=== PATIENT | male | born 1935 | race African-American/Black ===

== ENCOUNTER 2016-12-17 12:37 | Inpatient (IN) | payer MEDICARE ==
[~2016-12-17] VITALS: Ht 165.1 cm; Wt 86.2 kg
[~2016-12-17 12:37] MED LIST: AMLO5TAB4 PO; ASPI-867 PO; DUTA0.5C2 PO; FISH PO; FURO-151 PO; POTA10TA15 PO; TAMS-11 PO
[2016-12-17 12:59] VITALS: BP 120/62
[2016-12-17 13:00] VITALS: BP 120/62
[2016-12-17] MEDS ORDERED: ACETAMINOPHEN 325MG TABLET PO PRN ×2 (13:15→13:37)
[2016-12-17] MEDS ORDERED: DIPHENHYDRAMINE 25MG CAPSULE PO PRN (13:15)
[2016-12-17] MEDS ORDERED: MAGNESIUM/ALUMINUM HYDROXIDE/SIMETHICONE 30ML UDC PO PRN (13:15)
[2016-12-17] MEDS ORDERED: DEXTROSE 50% WATER 50ML SYRINGE IV PRN ×2 (13:15→13:45)
[2016-12-17] MEDS ORDERED: MORPHINE SULFATE 15MG TABLET SR PO PRN (13:15)
[2016-12-17] MEDS ORDERED: NITROGLYCERIN OINT 1GM/INCH UDPKT TD SCH (14:00)
[2016-12-17] MEDS: SODIUM CHLORIDE 0.9% INJ 3ML FLUSH IVF SCH ×2 (14:25→21:25)
[2016-12-17] MEDS: HYDRALAZINE HCL 100MG TABLET PO SCH ×2 (14:25→21:25)
[2016-12-17] MEDS: ONDANSETRON HCL 4MG TABLET PO PRN (14:29)
[2016-12-17] MEDS ORDERED: HYDROMORPHONE HCL 2MG TABLET PO PRN (15:00)
[2016-12-17 16:04] VITALS: BP 125/76
[2016-12-17] MEDS: BLOOD SUGAR DIAGNOSTIC STRIP TEST SCH ×2 (16:34→21:11)
[2016-12-17 17:44] LABS: BASOPHILS % 0.7 % (0.0-2.0); EOSINOPHILS % 2.2 % (0.0-5.0); HEMATOCRIT. 28.4 % (42.0-52.0); HEMOGLOBIN. 9.5 g/dL (14.0-18.0); LYMPHOCYTES % 8.7 % (20.0-50.0); MEAN CORPUSCULAR HEMOGLOBIN 31.8 pg (28.0-32.0); MEAN CORPUSCULAR HGB CONC 33.4 g/dL (31.0-37.0); MEAN CORPUSCULAR VOLUME 95.2 fL (80.0-94.0); MONOCYTES % 9.7 % (2.0-8.0); NEUTROPHILS % 78.7 % (40.0-76.0); PLATELET 182 x1000/uL (130-400); RED BLOOD CELL COUNT 2.99 mill/uL (4.7-6.1); RED CELL DISTRIBUTION WIDTH 13.5 % (11.6-14.6); WHITE BLOOD COUNT 10.7 x1000/uL (4.5-11.0)
[2016-12-17 17:49] LABS: CHLORIDE 96 mEq/L (98-107); INDEX HEMOLYSI 1 (1-3); INDEX ICTERIC 1 (1-4); INDEX LIPEMIC 1 (1-3)
[2016-12-17 17:57] LABS: ALANINE AMINOTRANSFERASE 26 IU/L (13-61); ALBUMIN 2.2 g/dL (3.4-5.0); ANION GAP 11; CALCIUM 8.5 mg/dL (8.5-10.1); CARBON DIOXIDE 31 mEq/L (21-32); PREALBUMIN 19.1 mg/dL (20.0-40.0); UREA NITROGEN BLOOD 53 mg/dL (7-21); eGFR 24 mL/min (>60)
[2016-12-17] MEDS: INSULIN LISPRO 100 UNITS/ML SUBCUT SCH ×2 (18:30→21:00)
[2016-12-17 20:00] VITALS: BP 117/60
[2016-12-17] MEDS: OXYBUTYNIN CHLORIDE 5MG TABLET PO SCH (20:45)
[2016-12-17] MEDS: CARVEDILOL 3.125 MG TABLET PO SCH (20:46)
[2016-12-17] MEDS ORDERED: FUROSEMIDE 40MG TABLET PO SCH (21:00)
[2016-12-17] MEDS ORDERED: LISINOPRIL 20MG TABLET PO SCH (21:00)
[2016-12-18] MEDS: HYDRALAZINE HCL 100MG TABLET PO SCH ×3 (05:22→21:36)
[2016-12-18] MEDS: SODIUM CHLORIDE 0.9% INJ 3ML FLUSH IVF SCH ×3 (05:22→21:39)
[2016-12-18] MEDS: BLOOD SUGAR DIAGNOSTIC STRIP TEST SCH ×4 (06:05→21:39)
[2016-12-18 06:34] LABS: BASOPHILS % 0.9 % (0.0-2.0); EOSINOPHILS % 3.4 % (0.0-5.0); HEMATOCRIT. 26.4 % (42.0-52.0); HEMOGLOBIN. 8.8 g/dL (14.0-18.0); LYMPHOCYTES % 13.9 % (20.0-50.0); MEAN CORPUSCULAR HEMOGLOBIN 31.9 pg (28.0-32.0); MEAN CORPUSCULAR HGB CONC 33.4 g/dL (31.0-37.0); MEAN CORPUSCULAR VOLUME 95.4 fL (80.0-94.0); MONOCYTES % 11.5 % (2.0-8.0); NEUTROPHILS % 70.3 % (40.0-76.0); PLATELET 175 x1000/uL (130-400); RED BLOOD CELL COUNT 2.77 mill/uL (4.7-6.1); WHITE BLOOD COUNT 9.2 x1000/uL (4.5-11.0)
[2016-12-18] MEDS: INSULIN LISPRO 100 UNITS/ML SUBCUT SCH ×4 (07:14→21:00)
[2016-12-18 07:34] LABS: CALCIUM 8.5 mg/dL (8.5-10.1); MAGNESIUM 2.3 mg/dL (1.8-2.4)
[2016-12-18 08:00] VITALS: BP 137/84
[2016-12-18] MEDS: TAMSULOSIN HCL 0.4MG SR CAPSULE PO SCH (09:47)
[2016-12-18] MEDS: OXYBUTYNIN CHLORIDE 5MG TABLET PO SCH ×2 (09:48→21:35)
[2016-12-18] MEDS: CARVEDILOL 3.125 MG TABLET PO SCH ×2 (09:48→21:37)
[2016-12-18] MEDS: ASPIRIN 81MG TABLET PO SCH (09:48)
[2016-12-18] MEDS: AMLODIPINE 5MG TABLET PO SCH (09:48)
[2016-12-18] MEDS: ENOXAPARIN 30MG/0.3ML SYR SUBCUT SCH (09:49)
[2016-12-18] MEDS: INSULIN DETEMIR UD 100 UNITS/ML SYR SUBCUT SCH (09:56)
[2016-12-18] MEDS ORDERED: LACTULOSE 20G/30ML UDC PO NR (13:00)
[2016-12-18] MEDS: ONDANSETRON HCL 4MG TABLET PO PRN (13:46)
[2016-12-18] MEDS: DOCUSATE SODIUM 100MG CAPSULE PO SCH (16:35)
[2016-12-18 17:19] LABS: CLARITY URINE CLEAR (CLEAR); COLOR URINE YELLOW (YELLOW); GLUCOSE URINE TRACE (NEGATIVE); KETONES URINE NEGATIVE (NEGATIVE); LEUKOCYTE ESTERASE URINE 2+ (NEGATIVE); NITRITE URINE NEGATIVE (NEGATIVE); OCCULT BLOOD URINE NEGATIVE (NEGATIVE); PH URINE 5.5 (4.5-8.0); PROTEIN URINE 3+ (NEGATIVE); SPECIFIC GRAVITY URINE 1.016 (1.005-1.030); UROBILINOGEN URINE 0.2 E.U./dL (0.2-1.0)
[2016-12-18 17:20] LABS: PHOSPHORUS 4.4 mg/dL (2.5-4.9)
[2016-12-18 17:47] LABS: BACTERIA URINE 1+; RBC URINE 0-2 /hpf (0-2); SQUAMOUS EPITHELIAL CELL URINE FEW /lpf (RARE/1+)
[2016-12-18 20:00] VITALS: BP 117/65
[2016-12-18] MEDS: IPRATROPIUM/ALBUTEROL 0.5-3(2.5)MG/3ML NEB HHN PRN (21:04)
[2016-12-19] MEDS: SODIUM CHLORIDE 0.9% INJ 3ML FLUSH IVF SCH ×3 (05:37→23:03)
[2016-12-19] MEDS: HYDRALAZINE HCL 100MG TABLET PO SCH ×3 (05:37→23:03)
[2016-12-19] MEDS: BLOOD SUGAR DIAGNOSTIC STRIP TEST SCH ×4 (05:41→21:00)
[2016-12-19] MEDS: INSULIN LISPRO 100 UNITS/ML SUBCUT SCH ×4 (05:42→23:01)
[2016-12-19 07:53] LABS: BASOPHILS % 0.6 % (0.0-2.0); EOSINOPHILS % 3.5 % (0.0-5.0); HEMATOCRIT. 26.5 % (42.0-52.0); LYMPHOCYTES % 14.7 % (20.0-50.0); MEAN CORPUSCULAR HEMOGLOBIN 32.7 pg (28.0-32.0); MEAN CORPUSCULAR HGB CONC 33.9 g/dL (31.0-37.0); MEAN CORPUSCULAR VOLUME 96.5 fL (80.0-94.0); MONOCYTES % 11.1 % (2.0-8.0); NEUTROPHILS % 70.1 % (40.0-76.0); PLATELET 182 x1000/uL (130-400); RED BLOOD CELL COUNT 2.75 mill/uL (4.7-6.1); RED CELL DISTRIBUTION WIDTH 13.2 % (11.6-14.6); WHITE BLOOD COUNT 8.1 x1000/uL (4.5-11.0)
[2016-12-19 08:00] VITALS: BP 136/65
[2016-12-19 08:33] LABS: CALCIUM 8.7 mg/dL (8.5-10.1); MAGNESIUM 2.5 mg/dL (1.8-2.4); PHOSPHORUS 3.9 mg/dL (2.5-4.9)
[2016-12-19 08:36] LABS: THYROID STIMULATING HORMONE 1.8 uIU/mL (0.36-3.74)
[2016-12-19] MEDS: ASPIRIN 81MG TABLET PO SCH (08:49)
[2016-12-19] MEDS: DOCUSATE SODIUM 100MG CAPSULE PO SCH ×2 (08:49→16:37)
[2016-12-19 08:50] LABS: PROSTRATE SPECIFIC AG TOTAL 0.23 ng/mL (0.0-4.0)
[2016-12-19] MEDS: FUROSEMIDE 40MG TABLET PO SCH (08:50)
[2016-12-19] MEDS: TAMSULOSIN HCL 0.4MG SR CAPSULE PO SCH (08:50)
[2016-12-19] MEDS: AMLODIPINE 5MG TABLET PO SCH (08:52)
[2016-12-19] MEDS: CARVEDILOL 3.125 MG TABLET PO SCH ×2 (08:52→23:03)
[2016-12-19] MEDS: OXYBUTYNIN CHLORIDE 5MG TABLET PO SCH ×2 (08:52→23:03)
[2016-12-19] MEDS: ENOXAPARIN 30MG/0.3ML SYR SUBCUT SCH (08:53)
[2016-12-19] MEDS ORDERED: NITROGLYCERIN 0.4MG TABLET SL SL SCH (09:00)
[2016-12-19 10:02] LABS: FOLIC ACID (FOLATE) SERUM 16.5 ng/mL (>5.38)
[2016-12-19] MEDS: LACTULOSE 20G/30ML UDC PO SCH ×3 (11:43→16:37)
[2016-12-19] MEDS: INSULIN DETEMIR UD 100 UNITS/ML SYR SUBCUT SCH (11:45)
[2016-12-19 16:19] LABS: CREATININE URINE RANDOM 55.4 mg/dL
[2016-12-19] MEDS: ONDANSETRON HCL 4MG TABLET PO PRN (19:27)
[2016-12-19 20:00] VITALS: BP 131/65
[2016-12-19] MEDS ORDERED: MAGNESIUM/ALUMINUM HYDROXIDE/SIMETHICONE 30ML UDC PO PRN (22:15)
[2016-12-19] MEDS ORDERED: BISACODYL 10MG SUPP PR NR (22:30)
[2016-12-19] MEDS ORDERED: ONDANSETRON HCL 4MG/2ML VIAL IV PRN (22:30)
[2016-12-19] MEDS ORDERED: NA PHOS,M-B/NA PHOS,DI-BA ENEMA 118ML PR NR (22:30)
[2016-12-19] MEDS: POLYETHYLENE GLYCOL 3350 (17GM) 1 DOSE PACK PO SCH (23:02)
[2016-12-20] MEDS: METOCLOPRAMIDE HCL 10MG/2ML VIAL IV SCH ×5 (01:00→23:30)
[2016-12-20] MEDS: INSULIN LISPRO 100 UNITS/ML SUBCUT SCH ×5 (02:52→20:47)
[2016-12-20] MEDS: HYDRALAZINE HCL 100MG TABLET PO SCH ×3 (06:11→21:00)
[2016-12-20] MEDS: SODIUM CHLORIDE 0.9% INJ 3ML FLUSH IVF SCH ×3 (06:12→21:01)
[2016-12-20] MEDS: BLOOD SUGAR DIAGNOSTIC STRIP TEST SCH ×4 (06:30→20:48)
[2016-12-20] MEDS ORDERED: SODIUM CHLORIDE 0.9% 1,000 ML IV SCH (06:45)
[2016-12-20] MEDS ORDERED: PANTOPRAZOLE 40MG DR TABLET PO SCH (07:00)
[2016-12-20 08:00] VITALS: BP 148/82
[2016-12-20] MEDS: PANTOPRAZOLE SODIUM 40 MG/VIAL IV SCH (08:44)
[2016-12-20] MEDS: ASPIRIN 81MG TABLET PO SCH (08:45)
[2016-12-20] MEDS: CARVEDILOL 3.125 MG TABLET PO SCH ×2 (08:45→20:48)
[2016-12-20] MEDS: OXYBUTYNIN CHLORIDE 5MG TABLET PO SCH ×2 (08:45→20:47)
[2016-12-20] MEDS ORDERED: NA PHOS,M-B/NA PHOS,DI-BA ENEMA 118ML PR ONE (08:45)
[2016-12-20] MEDS: FUROSEMIDE 40MG TABLET PO SCH (08:45)
[2016-12-20] MEDS: TAMSULOSIN HCL 0.4MG SR CAPSULE PO SCH (08:45)
[2016-12-20] MEDS: DOCUSATE SODIUM 250MG CAPSULE PO SCH ×2 (08:46→17:27)
[2016-12-20] MEDS: AMLODIPINE 5MG TABLET PO SCH (08:46)
[2016-12-20] MEDS: MUPIROCIN 2% OINT 22GM TOP SCH ×2 (08:46→17:27)
[2016-12-20] MEDS: ENOXAPARIN 30MG/0.3ML SYR SUBCUT SCH (08:46)
[2016-12-20] MEDS ORDERED: LACTULOSE 20G/30ML UDC PO PRN (09:00)
[2016-12-20 09:39] LABS: HEMOGLOBIN. 8.9 g/dL (14.0-18.0); MEAN CORPUSCULAR HEMOGLOBIN 32.8 pg (28.0-32.0); MEAN CORPUSCULAR VOLUME 96.4 fL (80.0-94.0); PLATELET 211 x1000/uL (130-400); RED CELL DISTRIBUTION WIDTH 13.3 % (11.6-14.6); WHITE BLOOD COUNT 9.1 x1000/uL (4.5-11.0)
[2016-12-20] MEDS: INSULIN DETEMIR UD 100 UNITS/ML SYR SUBCUT SCH (10:00)
[2016-12-20 10:35] LABS: ALANINE AMINOTRANSFERASE 37 IU/L (13-61); ALBUMIN 2.3 g/dL (3.4-5.0); AMYLASE 41 IU/L (25-115); ANION GAP 13; CALCIUM 8.3 mg/dL (8.5-10.1); CARBON DIOXIDE 27 mEq/L (21-32); CHLORIDE 95 mEq/L (98-107); INDEX HEMOLYSI 1 (1-3); INDEX ICTERIC 1 (1-4); INDEX LIPEMIC 1 (1-3); LIPASE 184 IU/L (73-393); UREA NITROGEN BLOOD 48 mg/dL (7-21); eGFR 29 mL/min (>60)
[2016-12-20 13:03] LABS: PLATELET ESTIMATE NORMAL
[2016-12-20] MEDS: DEXT 5%/0.9% NACL 1,000 ML IV SCH (14:27)
[2016-12-20] MEDS ORDERED: HYDROMORPHONE HCL 2MG TABLET PO PRN (15:00)
[2016-12-20 20:43] VITALS: BP 122/64
[2016-12-20] MEDS: POLYETHYLENE GLYCOL 3350 (17GM) 1 DOSE PACK PO SCH (20:47)
[2016-12-20] MEDS ORDERED: NA PHOS,M-B/NA PHOS,DI-BA ENEMA 118ML PR NR (21:45)
[2016-12-20] MEDS: LACTULOSE 20G/30ML UDC PO SCH (23:29)
[2016-12-21] MEDS: IPRATROPIUM/ALBUTEROL 0.5-3(2.5)MG/3ML NEB HHN PRN (00:07)
[2016-12-21] MEDS: LACTULOSE 20G/30ML UDC PO SCH ×2 (03:24→08:00)
[2016-12-21] MEDS: METOCLOPRAMIDE HCL 10MG/2ML VIAL IV SCH ×3 (05:29→17:20)
[2016-12-21] MEDS: HYDRALAZINE HCL 100MG TABLET PO SCH ×3 (05:29→22:54)
[2016-12-21] MEDS: SODIUM CHLORIDE 0.9% INJ 3ML FLUSH IVF SCH ×3 (05:29→22:53)
[2016-12-21] MEDS: BLOOD SUGAR DIAGNOSTIC STRIP TEST SCH ×4 (06:22→21:47)
[2016-12-21] MEDS: INSULIN LISPRO 100 UNITS/ML SUBCUT SCH ×4 (06:54→17:30)
[2016-12-21 07:09] LABS: EOSINOPHILS % 2.8 % (0.0-5.0); HEMATOCRIT. 25.8 % (42.0-52.0); HEMOGLOBIN. 8.7 g/dL (14.0-18.0); LYMPHOCYTES % 14.5 % (20.0-50.0); MEAN CORPUSCULAR HEMOGLOBIN 32.6 pg (28.0-32.0); MEAN CORPUSCULAR HGB CONC 33.8 g/dL (31.0-37.0); MEAN CORPUSCULAR VOLUME 96.6 fL (80.0-94.0); MEAN PLATELET VOLUME 10.8 fl (7.4-10.4); MONOCYTES % 10.6 % (2.0-8.0); NEUTROPHILS % 71.1 % (40.0-76.0); PLATELET 208 x1000/uL (130-400); RED BLOOD CELL COUNT 2.67 mill/uL (4.7-6.1); RED CELL DISTRIBUTION WIDTH 13.4 % (11.6-14.6); WHITE BLOOD COUNT 6.7 x1000/uL (4.5-11.0)
[2016-12-21 07:16] LABS: CALCIUM 8.9 mg/dL (8.5-10.1)
[2016-12-21 08:00] VITALS: BP 139/72
[2016-12-21] MEDS: DEXT 5%/0.9% NACL 1,000 ML IV SCH (09:19)
[2016-12-21] MEDS: MUPIROCIN 2% OINT 22GM TOP SCH ×2 (09:19→17:20)
[2016-12-21] MEDS: PANTOPRAZOLE SODIUM 40 MG/VIAL IV SCH (09:20)
[2016-12-21] MEDS: CARVEDILOL 3.125 MG TABLET PO SCH ×2 (09:20→21:46)
[2016-12-21] MEDS: ENOXAPARIN 30MG/0.3ML SYR SUBCUT SCH (09:20)
[2016-12-21] MEDS: FUROSEMIDE 40MG TABLET PO SCH (09:21)
[2016-12-21] MEDS: AMLODIPINE 5MG TABLET PO SCH (09:21)
[2016-12-21] MEDS: ASPIRIN 81MG TABLET PO SCH (09:21)
[2016-12-21] MEDS: DOCUSATE SODIUM 250MG CAPSULE PO SCH ×2 (09:21→16:29)
[2016-12-21] MEDS: OXYBUTYNIN CHLORIDE 5MG TABLET PO SCH ×2 (09:21→21:46)
[2016-12-21] MEDS: TAMSULOSIN HCL 0.4MG SR CAPSULE PO SCH (09:21)
[2016-12-21] MEDS: INSULIN DETEMIR UD 100 UNITS/ML SYR SUBCUT SCH (09:36)
[2016-12-21] MEDS: INSULIN LISPRO (LOW DOSE) 100 UNITS/ML SUBCUT SCH ×2 (12:56→16:29)
[2016-12-21] MEDS ORDERED: INSULIN LISPRO 100 UNITS/ML SUBCUT SCH (13:00)
[2016-12-21] MEDS: FUROSEMIDE 80MG TABLET PO SCH (16:29)
[2016-12-21 20:00] VITALS: BP 125/62
[2016-12-21] MEDS: POLYETHYLENE GLYCOL 3350 (17GM) 1 DOSE PACK PO SCH (21:46)
[2016-12-22] MEDS: METOCLOPRAMIDE HCL 10MG/2ML VIAL IV SCH ×3 (00:16→11:29)
[2016-12-22] MEDS: DEXT 5%/0.9% NACL 1,000 ML IV SCH (05:04)
[2016-12-22] MEDS: SODIUM CHLORIDE 0.9% INJ 3ML FLUSH IVF SCH ×4 (06:00→21:29)
[2016-12-22] MEDS: HYDRALAZINE HCL 100MG TABLET PO SCH ×3 (06:00→21:26)
[2016-12-22] MEDS: BLOOD SUGAR DIAGNOSTIC STRIP TEST SCH ×4 (06:00→21:25)
[2016-12-22] MEDS: INSULIN LISPRO (LOW DOSE) 100 UNITS/ML SUBCUT SCH ×3 (06:01→16:56)
[2016-12-22] MEDS: INSULIN LISPRO 100 UNITS/ML SUBCUT SCH ×3 (06:48→17:41)
[2016-12-22 08:00] VITALS: BP 137/63
[2016-12-22] MEDS ORDERED: LOSARTAN POTASSIUM 50 MG TABLET PO SCH (09:00)
[2016-12-22] MEDS: TAMSULOSIN HCL 0.4MG SR CAPSULE PO SCH (10:08)
[2016-12-22] MEDS: OXYBUTYNIN CHLORIDE 5MG TABLET PO SCH ×2 (10:09→21:00)
[2016-12-22] MEDS: AMLODIPINE 5MG TABLET PO SCH (10:09)
[2016-12-22] MEDS: CARVEDILOL 3.125 MG TABLET PO SCH ×2 (10:09→21:00)
[2016-12-22] MEDS: DOCUSATE SODIUM 250MG CAPSULE PO SCH ×2 (10:09→17:35)
[2016-12-22] MEDS: ASPIRIN 81MG TABLET PO SCH (10:09)
[2016-12-22] MEDS: FUROSEMIDE 80MG TABLET PO SCH ×2 (10:09→17:35)
[2016-12-22] MEDS: ENOXAPARIN 30MG/0.3ML SYR SUBCUT SCH (10:10)
[2016-12-22] MEDS: PANTOPRAZOLE SODIUM 40 MG/VIAL IV SCH (10:10)
[2016-12-22] MEDS: MUPIROCIN 2% OINT 22GM TOP SCH ×2 (10:11→17:35)
[2016-12-22] MEDS: INSULIN DETEMIR UD 100 UNITS/ML SYR SUBCUT SCH (10:14)
[2016-12-22 13:17] LABS: ANTI-MYELOPEROXIDASE AB < 9.0 U/mL (0.0-9.0); ANTI-PROTEINASE 3 ABS < 3.5 U/mL (0.0-3.5)
[2016-12-22 14:22] LABS: ATYPICAL P-ANCA <1:20 titer (Neg:<1:20); CYTOPLASMIC C-ANCA <1:20 titer (Neg:<1:20); PERINUCLEAR P-ANCA <1:20 titer (Neg:<1:20)
[2016-12-22 15:23] LABS: BASOPHILS % 0.9 % (0.0-2.0); HEMATOCRIT. 26.2 % (42.0-52.0); HEMOGLOBIN. 8.7 g/dL (14.0-18.0); LYMPHOCYTES % 11.1 % (20.0-50.0); MEAN CORPUSCULAR HEMOGLOBIN 31.9 pg (28.0-32.0); MEAN CORPUSCULAR HGB CONC 33.1 g/dL (31.0-37.0); MEAN CORPUSCULAR VOLUME 96.5 fL (80.0-94.0); MEAN PLATELET VOLUME 10.6 fl (7.4-10.4); MONOCYTES % 7.1 % (2.0-8.0); NEUTROPHILS % 77.9 % (40.0-76.0); PLATELET 219 x1000/uL (130-400); RED BLOOD CELL COUNT 2.71 mill/uL (4.7-6.1); RED CELL DISTRIBUTION WIDTH 13.3 % (11.6-14.6); WHITE BLOOD COUNT 9.3 x1000/uL (4.5-11.0)
[2016-12-22 15:26] LABS: CHLORIDE 98 mEq/L (98-107); INDEX HEMOLYSI 1 (1-3); INDEX ICTERIC 1 (1-4); INDEX LIPEMIC 1 (1-3)
[2016-12-22 15:30] LABS: AMMONIA 18 uMol/L (<32); INDEX HEMOLYSI 2 (1-3)
[2016-12-22 15:36] LABS: ALANINE AMINOTRANSFERASE 41 IU/L (13-61); ALBUMIN 2.3 g/dL (3.4-5.0); ANION GAP 9; CALCIUM 8.5 mg/dL (8.5-10.1); CARBON DIOXIDE 30 mEq/L (21-32); CREATINE KINASE 689 IU/L (39-308); MAGNESIUM 2.5 mg/dL (1.8-2.4); PHOSPHORUS 3.1 mg/dL (2.5-4.9); UREA NITROGEN BLOOD 41 mg/dL (7-21); eGFR 29 mL/min (>60)
[2016-12-22 20:00] VITALS: BP 125/60
[2016-12-22] MEDS: POLYETHYLENE GLYCOL 3350 (17GM) 1 DOSE PACK PO SCH (21:00)
[2016-12-23] MEDS: SODIUM CHLORIDE 0.9% INJ 3ML FLUSH IVF SCH ×3 (06:00→21:35)
[2016-12-23] MEDS: BLOOD SUGAR DIAGNOSTIC STRIP TEST SCH ×4 (06:51→21:35)
[2016-12-23] MEDS: INSULIN LISPRO 100 UNITS/ML SUBCUT SCH ×3 (06:51→17:20)
[2016-12-23] MEDS: INSULIN LISPRO (LOW DOSE) 100 UNITS/ML SUBCUT SCH ×4 (06:51→21:37)
[2016-12-23] MEDS: HYDRALAZINE HCL 100MG TABLET PO SCH ×3 (07:00→21:35)
[2016-12-23] MEDS: DEXT 5%/0.9% NACL 1,000 ML IV SCH ×2 (07:02→21:12)
[2016-12-23 08:00] VITALS: BP 154/73
[2016-12-23] MEDS ORDERED: FAMOTIDINE 20MG/2ML VIAL IV SCH (09:00)
[2016-12-23] MEDS: ASPIRIN 81MG TABLET PO SCH (09:54)
[2016-12-23] MEDS: DOCUSATE SODIUM 250MG CAPSULE PO SCH ×2 (09:54→16:56)
[2016-12-23] MEDS: FUROSEMIDE 80MG TABLET PO SCH ×2 (09:54→16:56)
[2016-12-23] MEDS: ENOXAPARIN 30MG/0.3ML SYR SUBCUT SCH (09:54)
[2016-12-23] MEDS: TAMSULOSIN HCL 0.4MG SR CAPSULE PO SCH (09:54)
[2016-12-23] MEDS: OXYBUTYNIN CHLORIDE 5MG TABLET PO SCH ×2 (09:54→21:35)
[2016-12-23] MEDS: CARVEDILOL 3.125 MG TABLET PO SCH ×2 (09:54→21:34)
[2016-12-23] MEDS: MUPIROCIN 2% OINT 22GM TOP SCH ×2 (09:55→17:17)
[2016-12-23] MEDS: LOSARTAN POTASSIUM 100 MG TABLET PO SCH (10:11)
[2016-12-23] MEDS: INSULIN DETEMIR UD 100 UNITS/ML SYR SUBCUT SCH (10:14)
[2016-12-23 11:54] LABS: INDEX HEMOLYSI 1 (1-3); INDEX ICTERIC 1 (1-4); INDEX LIPEMIC 1 (1-3); IRON 70 ug/dL (50-175); TOTAL IRON BINDING CAPACITY 223 ug/dL (250-450)
[2016-12-23 20:00] VITALS: BP 126/66
[2016-12-23] MEDS ORDERED: BISACODYL 10MG SUPP PR PRN (20:00)
[2016-12-23] MEDS: FAMOTIDINE 20MG TABLET PO SCH (21:34)
[2016-12-23] MEDS: EPOETIN ALFA 4000UNITS/ML VIAL SUBCUT SCH (21:35)
[2016-12-23] MEDS: POLYETHYLENE GLYCOL 3350 (17GM) 1 DOSE PACK PO SCH (21:44)
[2016-12-24] MEDS: SODIUM CHLORIDE 0.9% INJ 3ML FLUSH IVF SCH ×3 (06:15→22:00)
[2016-12-24] MEDS: BLOOD SUGAR DIAGNOSTIC STRIP TEST SCH ×4 (06:16→21:05)
[2016-12-24] MEDS: HYDRALAZINE HCL 100MG TABLET PO SCH ×3 (06:16→22:00)
[2016-12-24] MEDS: INSULIN LISPRO 100 UNITS/ML SUBCUT SCH ×4 (06:54→17:57)
[2016-12-24] MEDS ORDERED: NA PHOS,M-B/NA PHOS,DI-BA ENEMA 118ML PR SCH (07:45)
[2016-12-24 08:00] VITALS: BP 192/78
[2016-12-24] MEDS ORDERED: NA PHOS,M-B/NA PHOS,DI-BA ENEMA 118ML PR PRN ×2 (08:00→17:03)
[2016-12-24] MEDS: LACTULOSE 20G/30ML UDC PO SCH ×3 (09:42→17:35)
[2016-12-24] MEDS: BISACODYL 10MG SUPP PR SCH (09:42)
[2016-12-24] MEDS: ASPIRIN 81MG TABLET PO SCH (09:43)
[2016-12-24] MEDS: MUPIROCIN 2% OINT 22GM TOP SCH ×2 (09:43→17:38)
[2016-12-24] MEDS: DOCUSATE SODIUM 250MG CAPSULE PO SCH ×2 (09:43→17:35)
[2016-12-24] MEDS: FUROSEMIDE 80MG TABLET PO SCH ×2 (09:43→17:35)
[2016-12-24] MEDS: TAMSULOSIN HCL 0.4MG SR CAPSULE PO SCH (09:43)
[2016-12-24] MEDS: LOSARTAN POTASSIUM 100 MG TABLET PO SCH (09:43)
[2016-12-24] MEDS: CARVEDILOL 3.125 MG TABLET PO SCH ×2 (09:43→21:05)
[2016-12-24] MEDS: OXYBUTYNIN CHLORIDE 5MG TABLET PO SCH ×2 (09:43→21:04)
[2016-12-24] MEDS: POLYETHYLENE GLYCOL 3350 (17GM) 1 DOSE PACK PO SCH (09:44)
[2016-12-24] MEDS: ENOXAPARIN 30MG/0.3ML SYR SUBCUT SCH (09:44)
[2016-12-24] MEDS: INSULIN DETEMIR UD 100 UNITS/ML SYR SUBCUT SCH (09:45)
[2016-12-24] MEDS: INSULIN LISPRO (LOW DOSE) 100 UNITS/ML SUBCUT SCH ×2 (13:00→17:00)
[2016-12-24 13:40] VITALS: BP 135/68
[2016-12-24] MEDS: DEXT 5%/0.9% NACL 1,000 ML IV SCH (17:37)
[2016-12-24 20:00] VITALS: BP 194/88
[2016-12-24] MEDS: FAMOTIDINE 20MG TABLET PO SCH (21:04)
[2016-12-25] MEDS: SODIUM CHLORIDE 0.9% INJ 3ML FLUSH IVF SCH ×3 (06:55→21:56)
[2016-12-25] MEDS: HYDRALAZINE HCL 100MG TABLET PO SCH ×2 (06:55→14:27)
[2016-12-25] MEDS: BLOOD SUGAR DIAGNOSTIC STRIP TEST SCH ×4 (06:55→21:55)
[2016-12-25] MEDS: INSULIN LISPRO (LOW DOSE) 100 UNITS/ML SUBCUT SCH ×3 (07:00→17:00)
[2016-12-25] MEDS: INSULIN LISPRO 100 UNITS/ML SUBCUT SCH ×3 (07:00→18:45)
[2016-12-25 07:25] LABS: 25-HYDROXY VITAMIN D3 24 ng/mL (.)
[2016-12-25 08:00] VITALS: BP 155/90
[2016-12-25] MEDS: TAMSULOSIN HCL 0.4MG SR CAPSULE PO SCH (10:35)
[2016-12-25] MEDS: FUROSEMIDE 80MG TABLET PO SCH ×2 (10:35→18:33)
[2016-12-25] MEDS: DOCUSATE SODIUM 250MG CAPSULE PO SCH ×2 (10:35→18:33)
[2016-12-25] MEDS: OXYBUTYNIN CHLORIDE 5MG TABLET PO SCH ×2 (10:35→21:55)
[2016-12-25] MEDS: CARVEDILOL 3.125 MG TABLET PO SCH (10:36)
[2016-12-25] MEDS: LOSARTAN POTASSIUM 100 MG TABLET PO SCH (10:36)
[2016-12-25] MEDS: BISACODYL 10MG SUPP PR SCH (10:36)
[2016-12-25] MEDS: ASPIRIN 81MG TABLET PO SCH (10:36)
[2016-12-25] MEDS: ENOXAPARIN 30MG/0.3ML SYR SUBCUT SCH (10:37)
[2016-12-25] MEDS: POLYETHYLENE GLYCOL 3350 (17GM) 1 DOSE PACK PO SCH (10:37)
[2016-12-25] MEDS: INSULIN DETEMIR UD 100 UNITS/ML SYR SUBCUT SCH (10:37)
[2016-12-25] MEDS: DEXT 5%/0.9% NACL 1,000 ML IV SCH (11:37)
[2016-12-25] MEDS ORDERED: SORBITOL 70% SOLN 30ML PO NR ×3 (12:30→18:00)
[2016-12-25] MEDS ORDERED: METOCLOPRAMIDE HCL 10MG/2ML VIAL IV NR (12:30)
[2016-12-25 13:00] VITALS: BP 149/79
[2016-12-25] MEDS: ERGOCALCIFEROL 50000UNITS CAPSULE PO SCH (14:27)
[2016-12-25 20:00] VITALS: BP 139/82
[2016-12-25] MEDS ORDERED: POLYETHYLENE GLYCOL 3350 (17GM) 1 DOSE PACK PO SCH ×2 (21:00)
[2016-12-25] MEDS: CARVEDILOL 6.25 MG TABLET PO SCH (21:54)
[2016-12-25] MEDS: FAMOTIDINE 20MG TABLET PO SCH (21:54)
[2016-12-25] MEDS: EPOETIN ALFA 4000UNITS/ML VIAL SUBCUT SCH (21:55)
[2016-12-26] MEDS: HYDRALAZINE HCL 100MG TABLET PO SCH ×4 (00:29→20:47)
[2016-12-26] MEDS: SODIUM CHLORIDE 0.9% INJ 3ML FLUSH IVF SCH ×3 (06:18→20:54)
[2016-12-26] MEDS: BLOOD SUGAR DIAGNOSTIC STRIP TEST SCH ×4 (06:23→20:48)
[2016-12-26 06:26] LABS: EOSINOPHILS % 4.8 % (0.0-5.0); HEMATOCRIT. 25.7 % (42.0-52.0); HEMOGLOBIN. 8.5 g/dL (14.0-18.0); LYMPHOCYTES % 15.3 % (20.0-50.0); MEAN CORPUSCULAR HGB CONC 33.1 g/dL (31.0-37.0); MEAN CORPUSCULAR VOLUME 96.8 fL (80.0-94.0); MEAN PLATELET VOLUME 10.1 fl (7.4-10.4); MONOCYTES % 9.3 % (2.0-8.0); NEUTROPHILS % 69.6 % (40.0-76.0); PLATELET 201 x1000/uL (130-400); RED BLOOD CELL COUNT 2.66 mill/uL (4.7-6.1); RED CELL DISTRIBUTION WIDTH 13.4 % (11.6-14.6); WHITE BLOOD COUNT 8.4 x1000/uL (4.5-11.0)
[2016-12-26] MEDS: INSULIN LISPRO 100 UNITS/ML SUBCUT SCH ×3 (06:33→17:37)
[2016-12-26] MEDS: INSULIN LISPRO (LOW DOSE) 100 UNITS/ML SUBCUT SCH ×3 (06:34→16:52)
[2016-12-26 08:00] VITALS: BP 122/66
[2016-12-26] MEDS: DOCUSATE SODIUM 250MG CAPSULE PO SCH ×2 (08:19→17:21)
[2016-12-26] MEDS: OXYBUTYNIN CHLORIDE 5MG TABLET PO SCH ×2 (08:19→20:48)
[2016-12-26] MEDS: FUROSEMIDE 80MG TABLET PO SCH ×2 (08:19→17:21)
[2016-12-26] MEDS: LOSARTAN POTASSIUM 100 MG TABLET PO SCH (08:19)
[2016-12-26] MEDS: POLYETHYLENE GLYCOL 3350 (17GM) 1 DOSE PACK PO SCH (08:19)
[2016-12-26] MEDS: DEXT 5%/0.9% NACL 1,000 ML IV SCH (08:19)
[2016-12-26] MEDS: ENOXAPARIN 30MG/0.3ML SYR SUBCUT SCH (08:19)
[2016-12-26] MEDS: ASPIRIN 81MG TABLET PO SCH (08:19)
[2016-12-26] MEDS: TAMSULOSIN HCL 0.4MG SR CAPSULE PO SCH (08:20)
[2016-12-26] MEDS: CARVEDILOL 6.25 MG TABLET PO SCH ×2 (08:20→20:48)
[2016-12-26] MEDS: BISACODYL 10MG SUPP PR SCH (08:22)
[2016-12-26] MEDS ORDERED: BISACODYL 10MG SUPP PR SCH (09:00)
[2016-12-26 09:21] LABS: CALCIUM 8.5 mg/dL (8.5-10.1); MAGNESIUM 2.1 mg/dL (1.8-2.4); PHOSPHORUS 2.5 mg/dL (2.5-4.9)
[2016-12-26] MEDS ORDERED: NA PHOS,M-B/NA PHOS,DI-BA ENEMA 118ML PR NR (10:45)
[2016-12-26] MEDS: INSULIN DETEMIR UD 100 UNITS/ML SYR SUBCUT SCH (11:16)
[2016-12-26 16:41] LABS: CALCIUM 8.6 mg/dL (8.5-10.1)
[2016-12-26 20:00] VITALS: BP 154/91
[2016-12-26] MEDS: FAMOTIDINE 20MG TABLET PO SCH (20:47)
[2016-12-27] MEDS: BLOOD SUGAR DIAGNOSTIC STRIP TEST SCH ×4 (06:30→20:01)
[2016-12-27 07:00] VITALS: BP 158/92
[2016-12-27] MEDS: INSULIN LISPRO (LOW DOSE) 100 UNITS/ML SUBCUT SCH ×3 (07:00→17:35)
[2016-12-27 07:07] LABS: EOSINOPHILS % 4.9 % (0.0-5.0); HEMATOCRIT. 25.3 % (42.0-52.0); HEMOGLOBIN. 8.3 g/dL (14.0-18.0); LYMPHOCYTES % 14.9 % (20.0-50.0); MEAN CORPUSCULAR HGB CONC 32.8 g/dL (31.0-37.0); MEAN CORPUSCULAR VOLUME 97.5 fL (80.0-94.0); MEAN PLATELET VOLUME 10.6 fl (7.4-10.4); MONOCYTES % 8.8 % (2.0-8.0); NEUTROPHILS % 70.4 % (40.0-76.0); PLATELET 188 x1000/uL (130-400); RED BLOOD CELL COUNT 2.59 mill/uL (4.7-6.1); RED CELL DISTRIBUTION WIDTH 13.6 % (11.6-14.6); WHITE BLOOD COUNT 8.4 x1000/uL (4.5-11.0)
[2016-12-27 07:32] LABS: CALCIUM 8.7 mg/dL (8.5-10.1)
[2016-12-27] MEDS: INSULIN LISPRO 100 UNITS/ML SUBCUT SCH ×3 (08:10→17:33)
[2016-12-27] MEDS: ENOXAPARIN 30MG/0.3ML SYR SUBCUT SCH (08:11)
[2016-12-27] MEDS: POLYETHYLENE GLYCOL 3350 (17GM) 1 DOSE PACK PO SCH (08:12)
[2016-12-27] MEDS: TAMSULOSIN HCL 0.4MG SR CAPSULE PO SCH (08:12)
[2016-12-27] MEDS: FUROSEMIDE 80MG TABLET PO SCH ×2 (08:12→16:21)
[2016-12-27] MEDS: DOCUSATE SODIUM 250MG CAPSULE PO SCH ×2 (08:12→16:21)
[2016-12-27] MEDS: ASPIRIN 81MG TABLET PO SCH (08:12)
[2016-12-27] MEDS: CARVEDILOL 6.25 MG TABLET PO SCH ×2 (08:13→20:01)
[2016-12-27] MEDS: LOSARTAN POTASSIUM 100 MG TABLET PO SCH (08:13)
[2016-12-27] MEDS: BISACODYL 10MG SUPP PR SCH (08:13)
[2016-12-27] MEDS: OXYBUTYNIN CHLORIDE 5MG TABLET PO SCH ×2 (08:13→20:01)
[2016-12-27] MEDS: INSULIN DETEMIR UD 100 UNITS/ML SYR SUBCUT SCH (10:02)
[2016-12-27 11:29] LABS: CREATINE KINASE 350 IU/L (39-308); INDEX HEMOLYSI 1 (1-3)
[2016-12-27 13:12] VITALS: BP 134/67
[2016-12-27] MEDS: HYDRALAZINE HCL 100MG TABLET PO SCH ×2 (13:18→21:15)
[2016-12-27] MEDS: SODIUM CHLORIDE 0.9% INJ 3ML FLUSH IVF SCH ×2 (13:18→21:15)
[2016-12-27 20:00] VITALS: BP 152/91
[2016-12-27] MEDS: FAMOTIDINE 20MG TABLET PO SCH (20:01)
[2016-12-28] MEDS: HYDRALAZINE HCL 100MG TABLET PO SCH ×3 (05:34→22:04)
[2016-12-28] MEDS: SODIUM CHLORIDE 0.9% INJ 3ML FLUSH IVF SCH ×3 (05:34→22:04)
[2016-12-28] MEDS: BLOOD SUGAR DIAGNOSTIC STRIP TEST SCH ×4 (05:35→21:00)
[2016-12-28] MEDS: INSULIN LISPRO (LOW DOSE) 100 UNITS/ML SUBCUT SCH ×3 (05:35→16:56)
[2016-12-28] MEDS: INSULIN LISPRO 100 UNITS/ML SUBCUT SCH ×3 (06:33→16:57)
[2016-12-28 08:00] VITALS: BP 158/77
[2016-12-28] MEDS: ENOXAPARIN 30MG/0.3ML SYR SUBCUT SCH (08:33)
[2016-12-28] MEDS: CARVEDILOL 6.25 MG TABLET PO SCH ×2 (08:34→22:03)
[2016-12-28] MEDS: POLYETHYLENE GLYCOL 3350 (17GM) 1 DOSE PACK PO SCH (08:34)
[2016-12-28] MEDS: LOSARTAN POTASSIUM 100 MG TABLET PO SCH (08:34)
[2016-12-28] MEDS: ASPIRIN 81MG TABLET PO SCH (08:34)
[2016-12-28] MEDS: MULTIVITAMINS,THER W-MINERALS TABLET PO SCH (08:34)
[2016-12-28] MEDS: FUROSEMIDE 80MG TABLET PO SCH ×2 (08:34→16:52)
[2016-12-28] MEDS: DOCUSATE SODIUM 250MG CAPSULE PO SCH ×2 (08:34→16:52)
[2016-12-28] MEDS: BISACODYL 10MG SUPP PR SCH (08:35)
[2016-12-28] MEDS: OXYBUTYNIN CHLORIDE 5MG TABLET PO SCH ×2 (09:50→22:03)
[2016-12-28] MEDS: TAMSULOSIN HCL 0.4MG SR CAPSULE PO SCH (09:50)
[2016-12-28] MEDS: INSULIN DETEMIR UD 100 UNITS/ML SYR SUBCUT SCH (09:55)
[2016-12-28 12:31] LABS: INDEX HEMOLYSI 1 (1-3); INDEX ICTERIC 1 (1-4); INDEX LIPEMIC 1 (1-3); IRON 44 ug/dL (50-175); TOTAL IRON BINDING CAPACITY 206 ug/dL (250-450)
[2016-12-28] MEDS: CLONIDINE 0.1MG TABLET PO SCH (16:52)
[2016-12-28 19:00] VITALS: BP 129/65
[2016-12-28] MEDS: FAMOTIDINE 20MG TABLET PO SCH (22:03)
[2016-12-28] MEDS: EPOETIN ALFA 10000UNITS/ML VIAL SUBCUT SCH (22:04)
[2016-12-29] MEDS: SODIUM CHLORIDE 0.9% INJ 3ML FLUSH IVF SCH ×3 (05:12→21:52)
[2016-12-29] MEDS: HYDRALAZINE HCL 100MG TABLET PO SCH ×3 (06:12→22:00)
[2016-12-29] MEDS: BLOOD SUGAR DIAGNOSTIC STRIP TEST SCH ×4 (06:12→21:52)
[2016-12-29] MEDS: INSULIN LISPRO (LOW DOSE) 100 UNITS/ML SUBCUT SCH ×3 (06:13→17:39)
[2016-12-29 08:00] VITALS: BP 157/87
[2016-12-29] MEDS: BISACODYL 10MG SUPP PR SCH ×2 (09:00→09:48)
[2016-12-29] MEDS: DOCUSATE SODIUM 250MG CAPSULE PO SCH ×2 (09:47→17:29)
[2016-12-29] MEDS: TAMSULOSIN HCL 0.4MG SR CAPSULE PO SCH (09:47)
[2016-12-29] MEDS: LOSARTAN POTASSIUM 100 MG TABLET PO SCH (09:47)
[2016-12-29] MEDS: OXYBUTYNIN CHLORIDE 5MG TABLET PO SCH ×2 (09:47→21:52)
[2016-12-29] MEDS: MULTIVITAMINS,THER W-MINERALS TABLET PO SCH (09:47)
[2016-12-29] MEDS: CLONIDINE 0.1MG TABLET PO SCH ×2 (09:47→17:29)
[2016-12-29] MEDS: ASPIRIN 81MG TABLET PO SCH (09:47)
[2016-12-29] MEDS: CARVEDILOL 6.25 MG TABLET PO SCH ×2 (09:47→21:52)
[2016-12-29] MEDS: POLYETHYLENE GLYCOL 3350 (17GM) 1 DOSE PACK PO SCH (09:48)
[2016-12-29] MEDS: ENOXAPARIN 30MG/0.3ML SYR SUBCUT SCH (09:48)
[2016-12-29] MEDS: FUROSEMIDE 80MG TABLET PO SCH ×2 (09:48→17:29)
[2016-12-29] MEDS: INSULIN LISPRO 100 UNITS/ML SUBCUT SCH ×3 (09:49→17:38)
[2016-12-29] MEDS: INSULIN DETEMIR UD 100 UNITS/ML SYR SUBCUT SCH (09:49)
[2016-12-29 14:00] VITALS: BP 121/72
[2016-12-29 17:43] LABS: CREATININE URINE (RAW) 43.4 mg/dl
[2016-12-29 20:00] VITALS: BP 125/72
[2016-12-29] MEDS: FAMOTIDINE 20MG TABLET PO SCH (21:52)
[2016-12-30] MEDS: SODIUM CHLORIDE 0.9% INJ 3ML FLUSH IVF SCH ×3 (05:47→21:36)
[2016-12-30] MEDS: BLOOD SUGAR DIAGNOSTIC STRIP TEST SCH ×4 (05:47→21:43)
[2016-12-30] MEDS: HYDRALAZINE HCL 100MG TABLET PO SCH ×3 (05:52→21:36)
[2016-12-30] MEDS: INSULIN LISPRO (LOW DOSE) 100 UNITS/ML SUBCUT SCH ×3 (06:03→16:40)
[2016-12-30] MEDS: INSULIN LISPRO 100 UNITS/ML SUBCUT SCH ×3 (06:06→16:41)
[2016-12-30 07:09] LABS: ALANINE AMINOTRANSFERASE 72 IU/L (13-61); ALBUMIN 2.4 g/dL (3.4-5.0); ANION GAP 14; CARBON DIOXIDE 27 mEq/L (21-32); CHLORIDE 100 mEq/L (98-107); CREATINE KINASE 257 IU/L (39-308); INDEX HEMOLYSI 1 (1-3); INDEX ICTERIC 1 (1-4); INDEX LIPEMIC 1 (1-3); MAGNESIUM 2.2 mg/dL (1.8-2.4); UREA NITROGEN BLOOD 43 mg/dL (7-21); eGFR 37 mL/min (>60)
[2016-12-30 07:28] LABS: EOSINOPHILS % 2.9 % (0.0-5.0); HEMATOCRIT. 24.8 % (42.0-52.0); HEMOGLOBIN. 8.4 g/dL (14.0-18.0); LYMPHOCYTES % 15.2 % (20.0-50.0); MEAN CORPUSCULAR HEMOGLOBIN 33.1 pg (28.0-32.0); MEAN CORPUSCULAR HGB CONC 33.9 g/dL (31.0-37.0); MEAN CORPUSCULAR VOLUME 97.7 fL (80.0-94.0); MEAN PLATELET VOLUME 11.1 fl (7.4-10.4); MONOCYTES % 7.6 % (2.0-8.0); NEUTROPHILS % 73.3 % (40.0-76.0); PLATELET 161 x1000/uL (130-400); RED BLOOD CELL COUNT 2.53 mill/uL (4.7-6.1); RED CELL DISTRIBUTION WIDTH 13.9 % (11.6-14.6); WHITE BLOOD COUNT 9.5 x1000/uL (4.5-11.0)
[2016-12-30 08:00] VITALS: BP 140/75
[2016-12-30] MEDS: POLYETHYLENE GLYCOL 3350 (17GM) 1 DOSE PACK PO SCH (08:06)
[2016-12-30] MEDS: CLONIDINE 0.1MG TABLET PO SCH ×2 (08:07→16:39)
[2016-12-30] MEDS: DOCUSATE SODIUM 250MG CAPSULE PO SCH ×2 (08:07→16:38)
[2016-12-30] MEDS: TAMSULOSIN HCL 0.4MG SR CAPSULE PO SCH (08:07)
[2016-12-30] MEDS: OXYBUTYNIN CHLORIDE 5MG TABLET PO SCH ×2 (08:08→21:35)
[2016-12-30] MEDS: CARVEDILOL 6.25 MG TABLET PO SCH ×2 (08:08→21:35)
[2016-12-30] MEDS: MULTIVITAMINS,THER W-MINERALS TABLET PO SCH (08:08)
[2016-12-30] MEDS: LOSARTAN POTASSIUM 100 MG TABLET PO SCH (08:08)
[2016-12-30] MEDS: ASPIRIN 81MG TABLET PO SCH (08:08)
[2016-12-30] MEDS: FUROSEMIDE 80MG TABLET PO SCH ×2 (08:08→16:41)
[2016-12-30] MEDS: ENOXAPARIN 30MG/0.3ML SYR SUBCUT SCH (08:09)
[2016-12-30] MEDS: BISACODYL 10MG SUPP PR SCH (08:16)
[2016-12-30] MEDS: INSULIN DETEMIR UD 100 UNITS/ML SYR SUBCUT SCH (10:57)
[2016-12-30] MEDS: IPRATROPIUM/ALBUTEROL 0.5-3(2.5)MG/3ML NEB HHN PRN (12:24)
[2016-12-30 12:30] VITALS: BP 151/81
[2016-12-30 16:20] VITALS: BP 130/69
[2016-12-30 20:00] VITALS: BP 134/75
[2016-12-30] MEDS: EPOETIN ALFA 10000UNITS/ML VIAL SUBCUT SCH (21:35)
[2016-12-30] MEDS: FAMOTIDINE 20MG TABLET PO SCH (21:35)
[2016-12-31] MEDS: SODIUM CHLORIDE 0.9% INJ 3ML FLUSH IVF SCH ×3 (05:24→21:29)
[2016-12-31] MEDS: HYDRALAZINE HCL 100MG TABLET PO SCH ×3 (05:24→21:30)
[2016-12-31] MEDS: BLOOD SUGAR DIAGNOSTIC STRIP TEST SCH ×4 (06:44→21:29)
[2016-12-31] MEDS: INSULIN LISPRO (LOW DOSE) 100 UNITS/ML SUBCUT SCH ×3 (06:47→17:21)
[2016-12-31] MEDS: INSULIN LISPRO 100 UNITS/ML SUBCUT SCH ×3 (06:48→17:22)
[2016-12-31 07:10] LABS: BASOPHILS % 0.7 % (0.0-2.0); EOSINOPHILS % 4.4 % (0.0-5.0); HEMATOCRIT. 25.5 % (42.0-52.0); HEMOGLOBIN. 8.4 g/dL (14.0-18.0); LYMPHOCYTES % 15.5 % (20.0-50.0); MEAN CORPUSCULAR HEMOGLOBIN 32.8 pg (28.0-32.0); MEAN CORPUSCULAR HGB CONC 33.1 g/dL (31.0-37.0); MEAN PLATELET VOLUME 11.6 fl (7.4-10.4); MONOCYTES % 9.9 % (2.0-8.0); NEUTROPHILS % 69.5 % (40.0-76.0); PLATELET 153 x1000/uL (130-400); RED BLOOD CELL COUNT 2.57 mill/uL (4.7-6.1); RED CELL DISTRIBUTION WIDTH 14.3 % (11.6-14.6); WHITE BLOOD COUNT 7.7 x1000/uL (4.5-11.0)
[2016-12-31 07:50] LABS: ALANINE AMINOTRANSFERASE 81 IU/L (13-61); ALBUMIN 2.6 g/dL (3.4-5.0); ANION GAP 14; CALCIUM 9.5 mg/dL (8.5-10.1); CARBON DIOXIDE 27 mEq/L (21-32); CHLORIDE 98 mEq/L (98-107); INDEX HEMOLYSI 1 (1-3); INDEX ICTERIC 1 (1-4); INDEX LIPEMIC 1 (1-3); UREA NITROGEN BLOOD 47 mg/dL (7-21)
[2016-12-31 07:55] LABS: eGFR 33 mL/min (>60)
[2016-12-31 08:00] VITALS: BP 149/82
[2016-12-31] MEDS: POLYETHYLENE GLYCOL 3350 (17GM) 1 DOSE PACK PO SCH (08:12)
[2016-12-31] MEDS: CARVEDILOL 6.25 MG TABLET PO SCH ×2 (08:13→21:30)
[2016-12-31] MEDS: MULTIVITAMINS,THER W-MINERALS TABLET PO SCH (08:13)
[2016-12-31] MEDS: LOSARTAN POTASSIUM 100 MG TABLET PO SCH (08:13)
[2016-12-31] MEDS: ENOXAPARIN 30MG/0.3ML SYR SUBCUT SCH (08:14)
[2016-12-31] MEDS: DOCUSATE SODIUM 250MG CAPSULE PO SCH ×2 (08:14→17:20)
[2016-12-31] MEDS: ASPIRIN 81MG TABLET PO SCH (08:14)
[2016-12-31] MEDS: CLONIDINE 0.1MG TABLET PO SCH ×2 (08:15→17:20)
[2016-12-31] MEDS: TAMSULOSIN HCL 0.4MG SR CAPSULE PO SCH (08:15)
[2016-12-31] MEDS: FUROSEMIDE 80MG TABLET PO SCH ×2 (08:15→17:20)
[2016-12-31] MEDS: OXYBUTYNIN CHLORIDE 5MG TABLET PO SCH ×2 (08:15→21:29)
[2016-12-31] MEDS: BISACODYL 10MG SUPP PR SCH (09:00)
[2016-12-31] MEDS: INSULIN DETEMIR UD 100 UNITS/ML SYR SUBCUT SCH (10:33)
[2016-12-31 14:05] VITALS: BP 131/60
[2016-12-31 20:00] VITALS: BP 124/72
[2016-12-31] MEDS: FAMOTIDINE 20MG TABLET PO SCH (21:29)
[2017-01-01] MEDS: SODIUM CHLORIDE 0.9% INJ 3ML FLUSH IVF SCH (05:23)
[2017-01-01] MEDS: HYDRALAZINE HCL 100MG TABLET PO SCH ×2 (05:30→14:25)
[2017-01-01] MEDS: INSULIN LISPRO (LOW DOSE) 100 UNITS/ML SUBCUT SCH ×3 (06:22→17:42)
[2017-01-01] MEDS: BLOOD SUGAR DIAGNOSTIC STRIP TEST SCH ×3 (06:22→16:52)
[2017-01-01] MEDS: INSULIN LISPRO 100 UNITS/ML SUBCUT SCH ×3 (06:55→17:42)
[2017-01-01 08:00] VITALS: BP_SYST 111; BP_SYST 149; BP_DIAS 69; BP_DIAS 76
[2017-01-01] MEDS: ASPIRIN 81MG TABLET PO SCH (08:51)
[2017-01-01] MEDS: DOCUSATE SODIUM 250MG CAPSULE PO SCH ×2 (08:51→16:48)
[2017-01-01] MEDS: CARVEDILOL 6.25 MG TABLET PO SCH (08:52)
[2017-01-01] MEDS: MULTIVITAMINS,THER W-MINERALS TABLET PO SCH (08:52)
[2017-01-01] MEDS: TAMSULOSIN HCL 0.4MG SR CAPSULE PO SCH (08:53)
[2017-01-01] MEDS: POLYETHYLENE GLYCOL 3350 (17GM) 1 DOSE PACK PO SCH (08:53)
[2017-01-01] MEDS: LOSARTAN POTASSIUM 100 MG TABLET PO SCH (08:53)
[2017-01-01] MEDS: OXYBUTYNIN CHLORIDE 5MG TABLET PO SCH (08:53)
[2017-01-01] MEDS: CLONIDINE 0.1MG TABLET PO SCH ×2 (08:53→16:49)
[2017-01-01] MEDS: ENOXAPARIN 30MG/0.3ML SYR SUBCUT SCH (08:54)
[2017-01-01] MEDS: FUROSEMIDE 80MG TABLET PO SCH ×2 (08:56→16:48)
[2017-01-01] MEDS: INSULIN DETEMIR UD 100 UNITS/ML SYR SUBCUT SCH (10:44)
[2017-01-01] MEDS: ERGOCALCIFEROL 50000UNITS CAPSULE PO SCH (12:08)
[2017-01-01 13:16] VITALS: BP 121/68
== END 2017-01-01 20:24 | DRG 291 ==
PROVIDERS: ADMIT Physical Medicine & Rehabilitation Spinal Cord Injury Medicine; ATTEND Internal Medicine
DX: I13.0 Hypertensive heart and chronic kidney disease with heart failure and stage 1 through stage 4 chronic kidney disease, or unspecified chronic kidney disease (principal); I50.43 Acute on chronic combined systolic (congestive) and diastolic (congestive) heart failure; E43 Unspecified severe protein-calorie malnutrition; I63.9 Cerebral infarction, unspecified; I48.92 Unspecified atrial flutter; N17.9 Acute kidney failure, unspecified; M62.82 Rhabdomyolysis; N13.8 Other obstructive and reflux uropathy; N25.81 Secondary hyperparathyroidism of renal origin; E11.42 Type 2 diabetes mellitus with diabetic polyneuropathy; R26.9 Unspecified abnormalities of gait and mobility; R53.81 Other malaise; D72.829 Elevated white blood cell count, unspecified; E11.319 Type 2 diabetes mellitus with unspecified diabetic retinopathy without macular edema; E11.22 Type 2 diabetes mellitus with diabetic chronic kidney disease; N40.1 Benign prostatic hyperplasia with lower urinary tract symptoms; R33.8 Other retention of urine; I48.91 Unspecified atrial fibrillation; H54.0 Blindness, both eyes; G89.29 Other chronic pain; I25.10 Atherosclerotic heart disease of native coronary artery without angina pectoris; D63.1 Anemia in chronic kidney disease; N18.3 Chronic kidney disease, stage 3 (moderate); E11.65 Type 2 diabetes mellitus with hyperglycemia; D50.9 Iron deficiency anemia, unspecified; M19.90 Unspecified osteoarthritis, unspecified site; E11.21 Type 2 diabetes mellitus with diabetic nephropathy; B35.1 Tinea unguium; D53.9 Nutritional anemia, unspecified; E55.9 Vitamin D deficiency, unspecified; F03.90 Unspecified dementia, unspecified severity, without behavioral disturbance, psychotic disturbance, mood disturbance, and anxiety; Z79.82 Long term (current) use of aspirin; Z88.5 Allergy status to narcotic agent; Z68.31 Body mass index [BMI] 31.0-31.9, adult; Z88.8 Allergy status to other drugs, medicaments and biological substances; Z79.899 Other long term (current) drug therapy
CPT/HCPCS: 36415; 70551; 74000; 74230; 76770; 80048; 80053; 80061; 81001; 82140; 82150; 82306; 82550; 82570; 82575; 82607; 82728; 82746; 82962; 83036; 83520; 83540; 83550; 83615; 83690; 83735; 83970; 84100; 84134; 84153; 84156; 84300; 84443; 84630; 85007; 85025; 85027; 86256; 92523; 92610; 92611; 93880; 93970; 94640; 94664; 94760; 97110; 97116; 97150; 97162; 97166; 97530; 97532; 97535; C1893; C9113; J0885; J1650; J1815; J2405; J2765; J3490; J7030; J7042; J7620; Q0162; A4315

== ENCOUNTER 2018-07-07 21:28 | Inpatient (IN) | payer MEDICARE, MEDICAID ==
[~2018-07-07] VITALS: Ht 165.1 cm; Wt 89.5 kg
[~2018-07-07 21:28] MED LIST changes: +ASA5EC PO; -ASPI-867 PO
[2018-07-08] VITALS (7 sets, daily range): BP systolic 146–211; BP diastolic 62–105
[2018-07-08] MEDS ORDERED: ONDANSETRON HCL 4MG/2ML INJ IV STA (00:14)
[2018-07-08] MEDS ORDERED: MORPHINE SULFATE 4 MG/ML CPJ (NOT FOR IM USE) IV STA (00:14)
[2018-07-08 01:25] LABS: BASOPHILS % 1.4 % (0.0-2.0); EOSINOPHILS % 3.3 % (0.0-5.0); HEMATOCRIT. 31.1 % (42.0-52.0); MEAN CORPUSCULAR HEMOGLOBIN 30.6 pg (28.0-32.0); MEAN CORPUSCULAR VOLUME 94.7 fL (80.0-94.0); MEAN PLATELET VOLUME 11.2 fl (7.4-10.4); MONOCYTES % 4.9 % (2.0-8.0); NEUTROPHILS % 70.4 % (40.0-76.0); PLATELET 221 x1000/uL (130-400); RED BLOOD CELL COUNT 3.29 mill/uL (4.7-6.1); RED CELL DISTRIBUTION WIDTH 17.8 % (11.6-14.6)
[2018-07-08 01:30] LABS: CHLORIDE 110 mEq/L (98-107); INR 1.1; PROTHROMBIN TIME 11.2 sec (9.1-11.1)
[2018-07-08 01:38] LABS: CLARITY URINE CLEAR (CLEAR); COLOR URINE YELLOW (YELLOW); KETONES URINE NEGATIVE (NEGATIVE); LEUKOCYTE ESTERASE URINE NEGATIVE (NEGATIVE); NITRITE URINE NEGATIVE (NEGATIVE); OCCULT BLOOD URINE TRACE (NEGATIVE); PROTEIN URINE 3+ (NEGATIVE); SPECIFIC GRAVITY URINE 1.013 (1.005-1.030); UROBILINOGEN URINE 0.2 E.U./dL (0.2-1.0)
[2018-07-08] MEDS ORDERED: SODIUM CHLORIDE 0.9% 1,000 ML IV SCH (02:04)
[2018-07-08] MEDS ORDERED: SODIUM BICARBONATE 8.4% 1 MEQ/ML 50ML SYR IV ONE (02:15)
[2018-07-08] MEDS ORDERED: SODIUM POLYSTYRENE SULFONATE 15 G/60 ML BOT PO ONE ×2 (02:15→12:15)
[2018-07-08] MEDS ORDERED: ALBUTEROL (0.083%) 2.5MG/3ML NEB HHN ONE (02:15)
[2018-07-08] MEDS ORDERED: DEXTROSE 50% WATER 50ML SYRINGE IV ONE (02:15)
[2018-07-08] MEDS ORDERED: INSULIN REGULAR (HUMULIN R) 300UNITS/3ML IV ONE (02:15)
[2018-07-08] MEDS ORDERED: NIFEDIPINE XL 30MG TAB PO ONE (03:45)
[2018-07-08] MEDS ORDERED: MULT1TAB67 PO (05:27)
[2018-07-08] MEDS ORDERED: ASCO125T PO (05:27)
[2018-07-08] MEDS ORDERED: ZINC220C6 PO (05:27)
[2018-07-08] MEDS ORDERED: DOCU250C69 PO (05:27)
[2018-07-08] MEDS ORDERED: LACT10SO7 PO (05:34)
[2018-07-08] MEDS ORDERED: CLOP75TA16 PO (05:34)
[2018-07-08] MEDS ORDERED: ACETAMINOPHEN 325MG TABLET PO PRN (07:15)
[2018-07-08] MEDS ORDERED: DOCUSATE SODIUM 100MG CAPSULE PO PRN (07:15)
[2018-07-08] MEDS ORDERED: ONDANSETRON HCL 4MG/2ML INJ IV PRN (07:15)
[2018-07-08] MEDS ORDERED: HYDROCODONE/ACETAMINOPHEN 5/325MG TABLET PO PRN (07:15)
[2018-07-08] MEDS: CLONIDINE 0.1MG TABLET PO PRN (07:25)
[2018-07-08] MEDS: FINASTERIDE 5MG TABLET PO SCH (08:21)
[2018-07-08] MEDS: HYDRALAZINE HCL 100MG TABLET PO SCH ×2 (08:22→21:20)
[2018-07-08] MEDS: DUTASTERIDE 0.5MG CAPSULE PO SCH (08:22)
[2018-07-08] MEDS: AMLODIPINE 10MG TABLET PO SCH (08:22)
[2018-07-08] MEDS ORDERED: FUROSEMIDE 40MG/4ML VIAL IV SCH (09:00)
[2018-07-08] MEDS: FUROSEMIDE 40MG/4ML VIAL IV SCH (17:13)
[2018-07-08 18:15] LABS: CLARITY URINE CLOUDY (CLEAR); COLOR URINE YELLOW (YELLOW); KETONES URINE NEGATIVE (NEGATIVE); LEUKOCYTE ESTERASE URINE NEGATIVE (NEGATIVE); NITRITE URINE NEGATIVE (NEGATIVE); OCCULT BLOOD URINE 2+ (NEGATIVE); PROTEIN URINE 3+ (NEGATIVE); SPECIFIC GRAVITY URINE 1.012 (1.005-1.030); UROBILINOGEN URINE 0.2 E.U./dL (0.2-1.0)
[2018-07-09] VITALS (7 sets, daily range): BP systolic 137–180; BP diastolic 57–91
[2018-07-09] MEDS: DUTASTERIDE 0.5MG CAPSULE PO SCH (07:58)
[2018-07-09] MEDS: HYDRALAZINE HCL 100MG TABLET PO SCH ×2 (07:59→21:11)
[2018-07-09] MEDS: FUROSEMIDE 40MG/4ML VIAL IV SCH ×2 (08:00→17:23)
[2018-07-09] MEDS: CLONIDINE 0.1MG TABLET PO PRN (08:00)
[2018-07-09] MEDS: AMLODIPINE 10MG TABLET PO SCH (08:00)
[2018-07-09] MEDS: FINASTERIDE 5MG TABLET PO SCH (08:00)
[2018-07-09 08:44] LABS: CHLORIDE 112 mEq/L (98-107)
[2018-07-09] MEDS ORDERED: SODIUM POLYSTYRENE SULFONATE 15 G/60 ML BOT PO NR (11:30)
[2018-07-09 20:59] LABS: PHOSPHORUS 4.3 mg/dL (2.5-4.9)
[2018-07-10] VITALS: BP 151/76
[2018-07-10 04:00] VITALS: BP 148/77
[2018-07-10 07:03] LABS: BASOPHILS % 1.1 % (0.0-2.0); EOSINOPHILS % 2.4 % (0.0-5.0); HEMATOCRIT. 29.5 % (42.0-52.0); HEMOGLOBIN. 9.6 g/dL (14.0-18.0); LYMPHOCYTES % 8.8 % (20.0-50.0); MEAN CORPUSCULAR HEMOGLOBIN 30.7 pg (28.0-32.0); MEAN CORPUSCULAR VOLUME 94.1 fL (80.0-94.0); MEAN PLATELET VOLUME 11.1 fl (7.4-10.4); MONOCYTES % 7.3 % (2.0-8.0); NEUTROPHILS % 80.4 % (40.0-76.0); PLATELET 232 x1000/uL (130-400); RED BLOOD CELL COUNT 3.14 mill/uL (4.7-6.1); RED CELL DISTRIBUTION WIDTH 18.4 % (11.6-14.6)
[2018-07-10] MEDS: DUTASTERIDE 0.5MG CAPSULE PO SCH (07:55)
[2018-07-10] MEDS: FUROSEMIDE 40MG/4ML VIAL IV SCH (07:55)
[2018-07-10] MEDS: HYDRALAZINE HCL 100MG TABLET PO SCH ×2 (07:55→21:29)
[2018-07-10] MEDS: AMLODIPINE 10MG TABLET PO SCH (07:56)
[2018-07-10] MEDS: FINASTERIDE 5MG TABLET PO SCH (07:56)
[2018-07-10 08:00] VITALS: BP 202/85
[2018-07-10 12:00] VITALS: BP 153/76
[2018-07-10 16:00] VITALS: BP 170/84
[2018-07-10] MEDS: CLONIDINE 0.1MG TABLET PO PRN (16:40)
[2018-07-10 20:00] VITALS: BP 186/80
[2018-07-10] MEDS: BLOOD SUGAR DIAGNOSTIC STRIP TEST SCH (21:01)
[2018-07-11] VITALS: BP 156/88
[2018-07-11 04:00] VITALS: BP 150/80
[2018-07-11 07:11] LABS: BASOPHILS % 1.2 % (0.0-2.0); EOSINOPHILS % 1.1 % (0.0-5.0); HEMATOCRIT. 30.3 % (42.0-52.0); HEMOGLOBIN. 9.9 g/dL (14.0-18.0); LYMPHOCYTES % 12.1 % (20.0-50.0); MEAN CORPUSCULAR HEMOGLOBIN 30.8 pg (28.0-32.0); MEAN CORPUSCULAR VOLUME 94.3 fL (80.0-94.0); MEAN PLATELET VOLUME 11.2 fl (7.4-10.4); MONOCYTES % 6.3 % (2.0-8.0); NEUTROPHILS % 79.3 % (40.0-76.0); PLATELET 247 x1000/uL (130-400); RED BLOOD CELL COUNT 3.21 mill/uL (4.7-6.1); RED CELL DISTRIBUTION WIDTH 18.2 % (11.6-14.6)
[2018-07-11 07:51] LABS: PHOSPHORUS 4.7 mg/dL (2.5-4.9)
[2018-07-11 08:34] VITALS: BP 194/89
[2018-07-11 09:28] LABS: PHOSPHORUS 4.7 mg/dL (2.5-4.9)
[2018-07-11] MEDS: AMLODIPINE 10MG TABLET PO SCH (09:33)
[2018-07-11] MEDS: HYDRALAZINE HCL 100MG TABLET PO SCH ×2 (09:33→21:31)
[2018-07-11] MEDS: FUROSEMIDE 40MG/4ML VIAL IV SCH (09:33)
[2018-07-11] MEDS: FINASTERIDE 5MG TABLET PO SCH (09:33)
[2018-07-11] MEDS: DUTASTERIDE 0.5MG CAPSULE PO SCH (09:33)
[2018-07-11 12:32] VITALS: BP 161/81
[2018-07-11 12:46] LABS: HEPATITIS B SURFACE ANTIGEN NEGATIVE
[2018-07-11] MEDS: BLOOD SUGAR DIAGNOSTIC STRIP TEST SCH ×2 (13:08→21:17)
[2018-07-11 16:40] VITALS: BP 165/71
[2018-07-11 20:00] VITALS: BP 160/111
[2018-07-11] MEDS ORDERED: EPOETIN ALFA 4000UNITS/ML VIAL SUBCUT NR (21:00)
[2018-07-11] MEDS: INSULIN LISPRO 100 UNITS/ML SUBCUT SCH (22:00)
[2018-07-11] MEDS ORDERED: DEXTROSE 50% WATER 50ML SYRINGE IV PRN (22:00)
[2018-07-12] VITALS (7 sets, daily range): BP systolic 150–195; BP diastolic 68–88
[2018-07-12] MEDS: BLOOD SUGAR DIAGNOSTIC STRIP TEST SCH ×4 (05:52→20:39)
[2018-07-12] MEDS: INSULIN LISPRO 100 UNITS/ML SUBCUT SCH ×4 (07:50→22:03)
[2018-07-12 07:57] LABS: CHLORIDE 110 mEq/L (98-107)
[2018-07-12] MEDS: DUTASTERIDE 0.5MG CAPSULE PO SCH (11:07)
[2018-07-12] MEDS: FUROSEMIDE 40MG/4ML VIAL IV SCH (11:07)
[2018-07-12] MEDS: FINASTERIDE 5MG TABLET PO SCH (11:08)
[2018-07-12] MEDS: HYDRALAZINE HCL 100MG TABLET PO SCH ×2 (11:08→22:02)
[2018-07-12] MEDS: AMLODIPINE 10MG TABLET PO SCH (11:08)
[2018-07-12 13:06] LABS: A/G RATIO 0.8 (0.7-1.7); ALBUMIN 2.7 g/dL (2.9-4.4); ALPHA-1-GLOBULIN 0.3 g/dL (0.0-0.4); ALPHA-2-GLOBULIN 0.8 g/dL (0.4-1.0); BETA GLOBULIN 1.1 g/dL (0.7-1.3); GLOBULIN TOTAL 3.2 g/dL (2.2-3.9); M-SPIKE Not Observed g/dL (Not Observed); TOTAL PROTEIN SERUM 5.9 g/dL (6.0-8.5)
[2018-07-12] MEDS: CEFTRIAXONE 1 G PREMIX 50 ML IV SCH (14:53)
[2018-07-13] VITALS (7 sets, daily range): BP systolic 149–191; BP diastolic 60–86
[2018-07-13] MEDS: CLONIDINE 0.1MG TABLET PO PRN ×3 (02:08→19:39)
[2018-07-13] MEDS: BLOOD SUGAR DIAGNOSTIC STRIP TEST SCH ×3 (05:56→18:01)
[2018-07-13] MEDS: INSULIN LISPRO 100 UNITS/ML SUBCUT SCH ×3 (07:49→18:32)
[2018-07-13] MEDS: DUTASTERIDE 0.5MG CAPSULE PO SCH (08:47)
[2018-07-13] MEDS: HYDRALAZINE HCL 100MG TABLET PO SCH ×2 (08:47→20:12)
[2018-07-13] MEDS: FUROSEMIDE 40MG/4ML VIAL IV SCH (08:48)
[2018-07-13] MEDS: AMLODIPINE 10MG TABLET PO SCH (08:48)
[2018-07-13] MEDS: FINASTERIDE 5MG TABLET PO SCH (08:49)
[2018-07-13] MEDS: CEFTRIAXONE 1 G PREMIX 50 ML IV SCH (08:49)
== END 2018-07-13 20:45 | DRG 682 ==
LOC: ER 21:28 → 6WST 07-08 02:08 → ENRESERV 07-08 02:18
PROVIDERS: ADMIT Hospitalist; ATTEND Hospitalist
DX: N17.9 Acute kidney failure, unspecified (principal); E43 Unspecified severe protein-calorie malnutrition; E46 Unspecified protein-calorie malnutrition; E87.2 Acidosis; I13.2 Hypertensive heart and chronic kidney disease with heart failure and with stage 5 chronic kidney disease, or end stage renal disease; E87.5 Hyperkalemia; N40.1 Benign prostatic hyperplasia with lower urinary tract symptoms; N18.9 Chronic kidney disease, unspecified; I50.9 Heart failure, unspecified; J44.9 Chronic obstructive pulmonary disease, unspecified; E11.21 Type 2 diabetes mellitus with diabetic nephropathy; E11.319 Type 2 diabetes mellitus with unspecified diabetic retinopathy without macular edema; D63.1 Anemia in chronic kidney disease; R33.8 Other retention of urine; E11.22 Type 2 diabetes mellitus with diabetic chronic kidney disease; F03.90 Unspecified dementia, unspecified severity, without behavioral disturbance, psychotic disturbance, mood disturbance, and anxiety; H54.8 Legal blindness, as defined in USA; N41.9 Inflammatory disease of prostate, unspecified; R31.9 Hematuria, unspecified; I48.91 Unspecified atrial fibrillation; N18.6 End stage renal disease; N50.89 Other specified disorders of the male genital organs; I25.2 Old myocardial infarction; Z86.73 Personal history of transient ischemic attack (TIA), and cerebral infarction without residual deficits; Z68.32 Body mass index [BMI] 32.0-32.9, adult; Z88.5 Allergy status to narcotic agent; Z91.041 Radiographic dye allergy status; Z79.82 Long term (current) use of aspirin; Z79.899 Other long term (current) drug therapy
CPT/HCPCS: 36415; 51702; 71045; 76770; 80048; 82962; 83605; 83735; 83880; 84100; 84134; 84155; 84165; 84484; 86803; 87077; 87186; 87340; 93005; 93970; 96361; 96374; 96375; 99285; J0696; J0885; J1815; J1940; J2270; J2405; J3490; J7030; J7050; J7611; A4315

== ENCOUNTER 2018-11-11 21:47 | Inpatient (IN) | payer MEDICARE, MEDICAID ==
[~2018-11-11] VITALS: Ht 167.6 cm; Wt 72.7 kg
[~2018-11-11 21:47] MED LIST changes: +ASCO125T PO; +CLOP75TA16 PO; +DOCU250C69 PO; +LACT10SO7 PO; +MULT1TAB67 PO; +ZINC220C6 PO
[2018-11-12] MEDS ORDERED: SODIUM CHLORIDE 0.9% 1,000 ML IV ONE (01:01)
[2018-11-12 01:39] LABS: CHLORIDE 115 mEq/L (98-107); HEMATOCRIT. 22.3 % (42.0-52.0); HEMOGLOBIN. 7.2 g/dL (14.0-18.0); MEAN CORPUSCULAR HEMOGLOBIN 30.7 pg (28.0-32.0); MEAN CORPUSCULAR VOLUME 94.9 fL (80.0-94.0); MEAN PLATELET VOLUME 11.1 fl (7.4-10.4); PLATELET 118 x1000/uL (130-400); RED BLOOD CELL COUNT 2.35 mill/uL (4.7-6.1); RED CELL DISTRIBUTION WIDTH 14.2 % (11.6-14.6)
[2018-11-12 02:39] LABS: PLATELET ESTIMATE SLIGHTLY DECREASED
[2018-11-12 02:40] LABS: CLARITY URINE CLOUDY (CLEAR); COLOR URINE YELLOW (YELLOW); KETONES URINE NEGATIVE (NEGATIVE); LEUKOCYTE ESTERASE URINE 3+ (NEGATIVE); NITRITE URINE NEGATIVE (NEGATIVE); OCCULT BLOOD URINE NEGATIVE (NEGATIVE); PH URINE >=9.0 (4.5-8.0); PROTEIN URINE 2+ (NEGATIVE); SPECIFIC GRAVITY URINE 1.015 (1.005-1.030); UROBILINOGEN URINE 0.2 E.U./dL (0.2-1.0)
[2018-11-12] MEDS ORDERED: POTASSIUM CHLORIDE INJ 40 MEQ in DEXT 5% WATER 250 ML IV ONE (03:30)
[2018-11-12] MEDS ORDERED: POTASSIUM CHLORIDE 20MEQ TABLET SR PO SCH (03:33)
[2018-11-12] MEDS: KCL 20MEQ/100ML PREMIX 100 ML IV SCH ×2 (03:49→05:56)
[2018-11-12 09:45] VITALS: BP 153/56
[2018-11-12 10:00] VITALS: BP 153/56
[2018-11-12 10:30] VITALS: BP 153/56
[2018-11-12] MEDS ORDERED: SODIUM CHLORIDE 0.9% 1,000 ML IV SCH (10:32)
[2018-11-12] MEDS ORDERED: GUAIFENESIN 200MG/10ML SUGAR FREE UDC PO PRN (10:45)
[2018-11-12] MEDS ORDERED: DOCUSATE SODIUM 100MG CAPSULE PO PRN (10:45)
[2018-11-12] MEDS ORDERED: CLONIDINE 0.1MG TABLET PO PRN (10:45)
[2018-11-12] MEDS ORDERED: NITROGLYCERIN 0.4MG TABLET SL SL PRN (10:45)
[2018-11-12] MEDS ORDERED: ZOLPIDEM TARTRATE 5MG TABLET PO PRN (10:45)
[2018-11-12] MEDS ORDERED: MAGNESIUM/ALUMINUM HYDROXIDE/SIMETHICONE 30ML UDC PO PRN (10:45)
[2018-11-12] MEDS ORDERED: IPRATROPIUM/ALBUTEROL 0.5-3(2.5)MG/3ML NEB INH PRN (10:45)
[2018-11-12] MEDS ORDERED: CEFTRIAXONE 1 G PREMIX 50 ML IV SCH (10:45)
[2018-11-12] MEDS ORDERED: ONDANSETRON HCL 4MG/2ML INJ IV PRN (10:45)
[2018-11-12 12:00] VITALS: BP 134/58
[2018-11-12] MEDS ORDERED: LEVOFLOXACIN 500MG PREMIX 100 ML IV NR (12:00)
[2018-11-12] MEDS: FAMOTIDINE 20MG TABLET PO SCH (13:55)
[2018-11-12] MEDS: CEFTRIAXONE 1,000 MG in DEXTROSE 5% WATER 50 ML IV SCH (13:56)
[2018-11-12] MEDS: ENOXAPARIN 30MG/0.3ML SYR SUBCUT SCH (13:57)
[2018-11-12 16:00] VITALS: BP 158/62
[2018-11-12 17:42] LABS: CREATINE KINASE MB FRACTION 2.6 ng/mL (0.5-3.6)
[2018-11-12] MEDS ORDERED: BISACODYL 10MG SUPP PR NR (18:00)
[2018-11-12] MEDS ORDERED: AMLO10TA80 MT (18:35)
[2018-11-12] MEDS: SODIUM CHLORIDE 0.45% 1,000 ML IV SCH (19:06)
[2018-11-12 19:13] LABS: TOTAL IRON BINDING CAPACITY 178 ug/dL (250-450)
[2018-11-12 20:00] VITALS: BP 155/62
[2018-11-12] MEDS ORDERED: ASCORBIC ACID 500 MG TABLET PO SCH (21:00)
[2018-11-12] MEDS: ASCORBIC ACID 500 MG TABLET PO SCH (21:32)
[2018-11-12] MEDS: AMLODIPINE 5MG TABLET PO SCH (21:33)
[2018-11-12 21:48] LABS: FOLIC ACID (FOLATE) SERUM 4.2 ng/mL (>5.38)
[2018-11-12 23:38] LABS: CREATINE KINASE MB FRACTION 2.1 ng/mL (0.5-3.6)
[2018-11-13] VITALS: BP 130/54
[2018-11-13] MEDS: SODIUM CHLORIDE 0.45% 1,000 ML IV SCH ×2 (01:55→09:56)
[2018-11-13 04:00] VITALS: BP 136/56
[2018-11-13 07:20] LABS: PHOSPHORUS 3.5 mg/dL (2.5-4.9)
[2018-11-13 07:27] LABS: MEAN CORPUSCULAR HEMOGLOBIN 30.2 pg (28.0-32.0); MEAN CORPUSCULAR VOLUME 94.4 fL (80.0-94.0); MEAN PLATELET VOLUME 11.1 fl (7.4-10.4); PLATELET 148 x1000/uL (130-400); RED BLOOD CELL COUNT 2.17 mill/uL (4.7-6.1); RED CELL DISTRIBUTION WIDTH 14.4 % (11.6-14.6)
[2018-11-13 07:51] LABS: HEMOGLOBIN. 6.5 g/dL (14.0-18.0)
[2018-11-13 07:52] LABS: HEMATOCRIT. 20.4 % (42.0-52.0)
[2018-11-13 08:00] VITALS: BP 143/57
[2018-11-13] MEDS: ZINC SULFATE 220 MG ( 50 ) CAPSULE PO SCH (09:51)
[2018-11-13] MEDS: ASPIRIN 325MG EC TABLET PO SCH (09:51)
[2018-11-13] MEDS: FAMOTIDINE 20MG TABLET PO SCH (09:52)
[2018-11-13] MEDS: ASCORBIC ACID 500 MG TABLET PO SCH ×2 (09:54→21:48)
[2018-11-13] MEDS ORDERED: KCL 20MEQ/100ML PREMIX 100 ML IV NR (11:00)
[2018-11-13 12:00] VITALS: BP 132/64
[2018-11-13 12:01] LABS: PLATELET ESTIMATE NORMAL
[2018-11-13] MEDS: ENOXAPARIN 30MG/0.3ML SYR SUBCUT SCH (12:37)
[2018-11-13] MEDS: CEFTRIAXONE 1,000 MG in DEXTROSE 5% WATER 50 ML IV SCH (12:38)
[2018-11-13] MEDS ORDERED: EPOETIN ALFA 10000UNITS/ML VIAL SUBCUT NR (13:00)
[2018-11-13] MEDS: FOLIC ACID 1MG TABLET PO SCH (14:47)
[2018-11-13] MEDS: IRON SUCROSE COMPLEX 100 MG/5 ML ML IV SCH (14:47)
[2018-11-13] MEDS: POTASSIUM ACETATE 30 MEQ in DEXTROSE 5% WATER 1,000 ML IV SCH (14:48)
[2018-11-13 16:00] VITALS: BP 142/57
[2018-11-13 20:00] VITALS: BP 142/59
[2018-11-13] MEDS: AMLODIPINE 5MG TABLET PO SCH (21:48)
[2018-11-14] VITALS: BP 129/84
[2018-11-14] MEDS: POTASSIUM ACETATE 30 MEQ in DEXTROSE 5% WATER 1,000 ML IV SCH ×3 (00:21→17:51)
[2018-11-14 04:00] VITALS: BP 135/54
[2018-11-14 08:00] VITALS: BP 126/75
[2018-11-14] MEDS: FOLIC ACID 1MG TABLET PO SCH (08:43)
[2018-11-14] MEDS: ASCORBIC ACID 500 MG TABLET PO SCH ×2 (08:43→22:44)
[2018-11-14] MEDS: ASPIRIN 325MG EC TABLET PO SCH (08:43)
[2018-11-14] MEDS: ZINC SULFATE 220 MG ( 50 ) CAPSULE PO SCH (08:43)
[2018-11-14] MEDS: IRON SUCROSE COMPLEX 100 MG/5 ML ML IV SCH (08:44)
[2018-11-14] MEDS: PANTOPRAZOLE SODIUM 40 MG/VIAL IV SCH (08:44)
[2018-11-14 10:46] LABS: HEMATOCRIT. 21.7 % (42.0-52.0); MEAN CORPUSCULAR HEMOGLOBIN 30.7 pg (28.0-32.0); MEAN CORPUSCULAR VOLUME 96.8 fL (80.0-94.0); MEAN PLATELET VOLUME 11.3 fl (7.4-10.4); PLATELET 171 x1000/uL (130-400); RED BLOOD CELL COUNT 2.24 mill/uL (4.7-6.1); RED CELL DISTRIBUTION WIDTH 14.6 % (11.6-14.6)
[2018-11-14 10:50] LABS: HEMOGLOBIN. 6.9 g/dL (14.0-18.0)
[2018-11-14 11:09] LABS: PHOSPHORUS 3.5 mg/dL (2.5-4.9)
[2018-11-14 12:22] VITALS: BP 138/46
[2018-11-14 13:36] LABS: PLATELET ESTIMATE NORMAL
[2018-11-14 16:00] VITALS: BP 141/54
[2018-11-14] MEDS: LEVOFLOXACIN 250MG PREMIX 50 ML IV SCH (17:50)
[2018-11-14] MEDS: ENOXAPARIN 30MG/0.3ML SYR SUBCUT SCH (17:50)
[2018-11-14] MEDS: CEFTRIAXONE 1,000 MG in DEXTROSE 5% WATER 50 ML IV SCH (17:50)
[2018-11-14 20:00] VITALS: BP 140/56
[2018-11-14] MEDS: AMLODIPINE 5MG TABLET PO SCH (22:44)
[2018-11-15] VITALS: BP 146/60
[2018-11-15 04:00] VITALS: BP 158/62
[2018-11-15] MEDS: POTASSIUM ACETATE 30 MEQ in DEXTROSE 5% WATER 1,000 ML IV SCH (06:51)
[2018-11-15 06:52] LABS: PHOSPHORUS 3.7 mg/dL (2.5-4.9)
[2018-11-15 06:57] LABS: MEAN CORPUSCULAR HEMOGLOBIN 29.9 pg (28.0-32.0); MEAN CORPUSCULAR VOLUME 93.8 fL (80.0-94.0); MEAN PLATELET VOLUME 11.4 fl (7.4-10.4); PLATELET 196 x1000/uL (130-400); RED BLOOD CELL COUNT 1.99 mill/uL (4.7-6.1); RED CELL DISTRIBUTION WIDTH 14.7 % (11.6-14.6)
[2018-11-15 07:13] LABS: HEMATOCRIT. 18.7 % (42.0-52.0)
[2018-11-15] MEDS: ASPIRIN 325MG EC TABLET PO SCH (09:33)
[2018-11-15] MEDS: FOLIC ACID 1MG TABLET PO SCH (09:33)
[2018-11-15] MEDS: PANTOPRAZOLE SODIUM 40 MG/VIAL IV SCH (09:33)
[2018-11-15] MEDS: ASCORBIC ACID 500 MG TABLET PO SCH ×2 (09:33→20:59)
[2018-11-15] MEDS: ZINC SULFATE 220 MG ( 50 ) CAPSULE PO SCH (09:33)
[2018-11-15] MEDS: IRON SUCROSE COMPLEX 100 MG/5 ML ML IV SCH (09:33)
[2018-11-15] MEDS: ENOXAPARIN 30MG/0.3ML SYR SUBCUT SCH (11:00)
[2018-11-15] MEDS: DEXTROSE 5% IV SCH (11:28)
[2018-11-15] MEDS: POTASSIUM ACETATE IV SCH (11:28)
[2018-11-15] MEDS: WATER IV SCH (11:28)
[2018-11-15 11:39] VITALS: BP 146/61
[2018-11-15] MEDS: CEFTRIAXONE 1,000 MG in DEXTROSE 5% WATER 50 ML IV SCH (11:56)
[2018-11-15 15:17] VITALS: BP 152/61
[2018-11-15 16:05] LABS: PLATELET ESTIMATE NORMAL
[2018-11-15 20:00] VITALS: BP 139/56
[2018-11-15] MEDS: AMLODIPINE 5MG TABLET PO SCH (20:59)
[2018-11-15] MEDS: EPOETIN ALFA 10000UNITS/ML VIAL SUBCUT SCH (21:00)
[2018-11-16] VITALS: BP 129/48
[2018-11-16 04:00] VITALS: BP 139/56
[2018-11-16] MEDS: WATER IV SCH ×2 (04:56→14:16)
[2018-11-16] MEDS: POTASSIUM ACETATE IV SCH ×2 (04:56→14:16)
[2018-11-16] MEDS: DEXTROSE 5% IV SCH ×2 (04:56→14:16)
[2018-11-16 08:00] VITALS: BP 133/50
[2018-11-16 08:25] LABS: HEMATOCRIT 16.4 % (42.0-52.0); HEMOGLOBIN 5.3 g/dL (14.0-18.0)
[2018-11-16] MEDS: ASPIRIN 325MG EC TABLET PO SCH (10:03)
[2018-11-16] MEDS: FOLIC ACID 1MG TABLET PO SCH (10:03)
[2018-11-16] MEDS: ASCORBIC ACID 500 MG TABLET PO SCH ×2 (10:03→20:37)
[2018-11-16] MEDS: ENOXAPARIN 30MG/0.3ML SYR SUBCUT SCH (10:04)
[2018-11-16] MEDS: PANTOPRAZOLE SODIUM 40 MG/VIAL IV SCH (10:04)
[2018-11-16] MEDS: LEVOFLOXACIN 250MG PREMIX 50 ML IV SCH (10:07)
[2018-11-16] MEDS: ZINC SULFATE 220 MG ( 50 ) CAPSULE PO SCH (10:07)
[2018-11-16 11:26] VITALS: BP 132/70
[2018-11-16] MEDS: CEFTRIAXONE 1,000 MG in DEXTROSE 5% WATER 50 ML IV SCH (12:44)
[2018-11-16 15:03] VITALS: BP 142/57
[2018-11-16 20:00] VITALS: BP 145/54
[2018-11-16] MEDS: AMLODIPINE 5MG TABLET PO SCH (20:37)
[2018-11-17] VITALS (7 sets, daily range): BP systolic 131–156; BP diastolic 55–77
[2018-11-17] MEDS: POTASSIUM ACETATE IV SCH (05:14)
[2018-11-17] MEDS: WATER IV SCH (05:14)
[2018-11-17] MEDS: DEXTROSE 5% IV SCH (05:14)
[2018-11-17] MEDS: ZINC SULFATE 220 MG ( 50 ) CAPSULE PO SCH (09:44)
[2018-11-17] MEDS: PANTOPRAZOLE SODIUM 40 MG/VIAL IV SCH (09:44)
[2018-11-17] MEDS: FOLIC ACID 1MG TABLET PO SCH (09:44)
[2018-11-17] MEDS: ASCORBIC ACID 500 MG TABLET PO SCH ×2 (09:45→20:35)
[2018-11-17] MEDS: ASPIRIN 325MG EC TABLET PO SCH (09:45)
[2018-11-17] MEDS: ENOXAPARIN 30MG/0.3ML SYR SUBCUT SCH (11:02)
[2018-11-17] MEDS: CEFTRIAXONE 1,000 MG in DEXTROSE 5% WATER 50 ML IV SCH (11:05)
[2018-11-17] MEDS ORDERED: POTASSIUM CHLORIDE 20MEQ TABLET SR PO NR (13:15)
[2018-11-17] MEDS: CITRIC ACID/SODIUM CITRATE SOLN 15ML UDC PO SCH ×2 (14:30→18:06)
[2018-11-17] MEDS: EPOETIN ALFA 10000UNITS/ML VIAL SUBCUT SCH (20:36)
[2018-11-17] MEDS: AMLODIPINE 5MG TABLET PO SCH (20:36)
[2018-11-18 04:00] VITALS: BP 161/66
[2018-11-18 08:00] VITALS: BP 148/67
[2018-11-18] MEDS: FOLIC ACID 1MG TABLET PO SCH (10:30)
[2018-11-18] MEDS: ASPIRIN 325MG EC TABLET PO SCH (10:30)
[2018-11-18] MEDS: ASCORBIC ACID 500 MG TABLET PO SCH (10:30)
[2018-11-18] MEDS: ZINC SULFATE 220 MG ( 50 ) CAPSULE PO SCH (10:30)
[2018-11-18] MEDS: CITRIC ACID/SODIUM CITRATE SOLN 15ML UDC PO SCH ×3 (10:31→18:48)
[2018-11-18] MEDS: PANTOPRAZOLE SODIUM 40 MG/VIAL IV SCH (10:31)
[2018-11-18] MEDS: LEVOFLOXACIN 250MG PREMIX 50 ML IV SCH (10:43)
[2018-11-18 12:00] VITALS: BP 132/58
[2018-11-18] MEDS: ENOXAPARIN 30MG/0.3ML SYR SUBCUT SCH (13:22)
[2018-11-18] MEDS: CEFTRIAXONE 1,000 MG in DEXTROSE 5% WATER 50 ML IV SCH (13:49)
[2018-11-18 16:00] VITALS: BP 141/82
[2018-11-18 17:56] VITALS: BP 146/60
[2018-11-18 20:11] VITALS: BP 140/61
== END 2018-11-18 19:50 | disposition home health service (06) | DRG 871 ==
LOC: ER 21:47 → 5WST 11-12 08:09 → ENRESERV 11-12 08:26 → 6WST 11-14 21:15
PROVIDERS: ADMIT Hospitalist; ATTEND Hospitalist
DX: A41.9 Sepsis, unspecified organism (principal); G92 Toxic encephalopathy; E43 Unspecified severe protein-calorie malnutrition; N39.0 Urinary tract infection, site not specified; E87.0 Hyperosmolality and hypernatremia; E87.2 Acidosis; I13.2 Hypertensive heart and chronic kidney disease with heart failure and with stage 5 chronic kidney disease, or end stage renal disease; N17.9 Acute kidney failure, unspecified; N18.5 Chronic kidney disease, stage 5; E87.6 Hypokalemia; D53.9 Nutritional anemia, unspecified; E86.0 Dehydration; L89.159 Pressure ulcer of sacral region, unspecified stage; E11.65 Type 2 diabetes mellitus with hyperglycemia; I48.91 Unspecified atrial fibrillation; J44.9 Chronic obstructive pulmonary disease, unspecified; N41.9 Inflammatory disease of prostate, unspecified; L89.620 Pressure ulcer of left heel, unstageable; L89.610 Pressure ulcer of right heel, unstageable; L89.890 Pressure ulcer of other site, unstageable; N40.0 Benign prostatic hyperplasia without lower urinary tract symptoms; D69.6 Thrombocytopenia, unspecified; E11.22 Type 2 diabetes mellitus with diabetic chronic kidney disease; E11.319 Type 2 diabetes mellitus with unspecified diabetic retinopathy without macular edema; I50.9 Heart failure, unspecified; K56.41 Fecal impaction; Z51.5 Encounter for palliative care; Z88.6 Allergy status to analgesic agent; Z86.73 Personal history of transient ischemic attack (TIA), and cerebral infarction without residual deficits; Z91.041 Radiographic dye allergy status; Z79.82 Long term (current) use of aspirin; Z79.899 Other long term (current) drug therapy; Z68.25 Body mass index [BMI] 25.0-25.9, adult
CPT/HCPCS: 36415; 74176; 76770; 80048; 80061; 82550; 82553; 82607; 82746; 82962; 83036; 83540; 83550; 83605; 83735; 84100; 84134; 84484; 85014; 85018; 86850; 86900; 86920; 93005; 93306; 93970; 96374; 99285; A6261; C9113; J0696; J0885; J1650; J1956; J3480; J3490; J7030; J7060; J7070

== ENCOUNTER 2018-11-21 11:27 | Inpatient (IN) | payer MEDICARE, MEDICAID ==
[~2018-11-21] VITALS: Ht 175.3 cm; Wt 59.0 kg
[~2018-11-21 11:27] MED LIST changes: +AMLO10TA80 MT; -AMLO5TAB4 PO
[2018-11-21] MEDS ORDERED: PIPERACILLIN/TAZ 3.375G PREMIX 50 ML IV ONE (12:00)
[2018-11-21] MEDS ORDERED: SODIUM CHLORIDE 0.9% 1000ML BAG (SEPSIS BOLUS) IV ONE (12:00)
[2018-11-21] MEDS ORDERED: VANCOMYCIN 1 G PREMIX 200 ML IV SCH (12:15)
[2018-11-21 12:16] LABS: MEAN CORPUSCULAR HEMOGLOBIN 30.9 pg (28.0-32.0); MEAN CORPUSCULAR VOLUME 95.6 fL (80.0-94.0); MEAN PLATELET VOLUME 9.7 fl (7.4-10.4); PLATELET 351 x1000/uL (130-400); RED BLOOD CELL COUNT 1.76 mill/uL (4.7-6.1); RED CELL DISTRIBUTION WIDTH 15.6 % (11.6-14.6)
[2018-11-21 12:23] LABS: CHLORIDE 111 mEq/L (98-107)
[2018-11-21 12:30] LABS: HEMATOCRIT. 16.9 % (42.0-52.0); HEMOGLOBIN. 5.5 g/dL (14.0-18.0)
[2018-11-21 12:40] LABS: INR 1.3; PROTHROMBIN TIME 13.1 sec (9.1-11.1)
[2018-11-21 13:14] LABS: PLATELET ESTIMATE NORMAL
[2018-11-21] MEDS ORDERED: IPRATROPIUM/ALBUTEROL 0.5-3(2.5)MG/3ML NEB INH PRN (14:15)
[2018-11-21] MEDS ORDERED: DIPHENHYDRAMINE 50MG/ML VIAL IV PRN (14:15)
[2018-11-21 14:16] LABS: CLARITY URINE TURBID (CLEAR); COLOR URINE YELLOW (YELLOW); KETONES URINE NEGATIVE (NEGATIVE); LEUKOCYTE ESTERASE URINE 2+ (NEGATIVE); NITRITE URINE NEGATIVE (NEGATIVE); OCCULT BLOOD URINE TRACE (NEGATIVE); PROTEIN URINE 2+ (NEGATIVE); SPECIFIC GRAVITY URINE 1.014 (1.005-1.030); UROBILINOGEN URINE 0.2 E.U./dL (0.2-1.0)
[2018-11-21 22:40] VITALS: BP 164/65
[2018-11-21 22:45] VITALS: BP 164/65
[2018-11-22] MEDS ORDERED: DEXTROSE 50% WATER 50ML SYRINGE IV PRN (03:00)
[2018-11-22 03:50] VITALS: BP 166/69
[2018-11-22 05:57] LABS: MEAN CORPUSCULAR HEMOGLOBIN 30.7 pg (28.0-32.0); MEAN CORPUSCULAR VOLUME 96.4 fL (80.0-94.0); MEAN PLATELET VOLUME 9.8 fl (7.4-10.4); PLATELET 316 x1000/uL (130-400); RED BLOOD CELL COUNT 1.79 mill/uL (4.7-6.1); RED CELL DISTRIBUTION WIDTH 15.9 % (11.6-14.6)
[2018-11-22] MEDS: BLOOD SUGAR DIAGNOSTIC STRIP TEST SCH ×4 (06:05→22:27)
[2018-11-22] MEDS: INSULIN LISPRO 100 UNITS/ML SUBCUT SCH ×4 (06:05→22:27)
[2018-11-22 06:29] LABS: CHLORIDE 113 mEq/L (98-107)
[2018-11-22 06:51] LABS: CREATINE KINASE 66 IU/L (39-308)
[2018-11-22 06:54] LABS: CREATINE KINASE MB FRACTION 5.2 ng/mL (0.5-3.6)
[2018-11-22 08:00] VITALS: BP 137/65
[2018-11-22 08:07] LABS: HEMATOCRIT. 17.2 % (42.0-52.0); HEMOGLOBIN. 5.5 g/dL (14.0-18.0)
[2018-11-22 12:00] VITALS: BP 134/62
[2018-11-22 15:55] VITALS: BP 138/68
[2018-11-22 20:00] VITALS: BP 141/62
[2018-11-23 00:04] VITALS: BP 146/74
[2018-11-23 00:37] LABS: PLATELET ESTIMATE NORMAL
[2018-11-23 04:00] VITALS: BP 148/58
[2018-11-23] MEDS: BLOOD SUGAR DIAGNOSTIC STRIP TEST SCH ×2 (06:43→12:48)
[2018-11-23 06:45] LABS: MEAN CORPUSCULAR HEMOGLOBIN 30.5 pg (28.0-32.0); MEAN CORPUSCULAR VOLUME 97.2 fL (80.0-94.0); MEAN PLATELET VOLUME 9.9 fl (7.4-10.4); PLATELET 318 x1000/uL (130-400); RED BLOOD CELL COUNT 1.88 mill/uL (4.7-6.1); RED CELL DISTRIBUTION WIDTH 16.4 % (11.6-14.6)
[2018-11-23] MEDS: INSULIN LISPRO 100 UNITS/ML SUBCUT SCH ×2 (06:45→12:48)
[2018-11-23 07:53] LABS: HEMATOCRIT. 18.2 % (42.0-52.0); HEMOGLOBIN. 5.7 g/dL (14.0-18.0)
[2018-11-23 11:15] LABS: PLATELET ESTIMATE NORMAL
[2018-11-23 11:22] VITALS: BP 152/75
[2018-11-23] MEDS: POTASSIUM ACETATE 30 MEQ in DEXTROSE 5% WATER 1,000 ML IV SCH (11:24)
[2018-11-23 16:15] VITALS: BP 142/61
[2018-11-23 20:00] VITALS: BP 162/73
[2018-11-23] MEDS: EPOETIN ALFA 10000UNITS/ML VIAL SUBCUT SCH (20:55)
[2018-11-23] MEDS: HYDRALAZINE 20MG/ML VIAL IV PRN (20:57)
[2018-11-24] VITALS: BP 196/92
[2018-11-24] MEDS: POTASSIUM ACETATE 30 MEQ in DEXTROSE 5% WATER 1,000 ML IV SCH ×2 (02:31→20:58)
[2018-11-24 04:00] VITALS: BP 154/61
[2018-11-24 07:55] LABS: MEAN CORPUSCULAR HEMOGLOBIN 30.4 pg (28.0-32.0); MEAN CORPUSCULAR VOLUME 95.9 fL (80.0-94.0); MEAN PLATELET VOLUME 10.1 fl (7.4-10.4); PLATELET 311 x1000/uL (130-400); RED BLOOD CELL COUNT 2.04 mill/uL (4.7-6.1); RED CELL DISTRIBUTION WIDTH 16.5 % (11.6-14.6)
[2018-11-24 08:00] VITALS: BP 158/67
[2018-11-24 08:15] LABS: HEMATOCRIT. 19.5 % (42.0-52.0); HEMOGLOBIN. 6.2 g/dL (14.0-18.0)
[2018-11-24] MEDS ORDERED: AMLODIPINE 5MG TABLET PO SCH (09:15)
[2018-11-24 10:14] LABS: PHOSPHORUS 5.4 mg/dL (2.5-4.9)
[2018-11-24] MEDS ORDERED: MEROPENEM 500 MG in SODIUM CHLORIDE 0.9% 50 ML IV SCH (10:30)
[2018-11-24] MEDS ORDERED: POTASSIUM CHLORIDE 20MEQ/PACKET PO NR (10:45)
[2018-11-24 11:08] LABS: PLATELET ESTIMATE NORMAL
[2018-11-24 12:25] VITALS: BP 139/63
[2018-11-24] MEDS ORDERED: MEROPENEM 1000MG in NORMAL SALINE 100ML IV SCH (13:00)
[2018-11-24 17:11] VITALS: BP 149/65
[2018-11-24 20:33] VITALS: BP 172/69
[2018-11-24] MEDS: AMLODIPINE 5MG TABLET PO SCH (21:01)
[2018-11-25] VITALS: BP 153/87
[2018-11-25 04:00] VITALS: BP 105/63
[2018-11-25 07:18] LABS: MEAN CORPUSCULAR VOLUME 97.7 fL (80.0-94.0); MEAN PLATELET VOLUME 10.3 fl (7.4-10.4); PLATELET 270 x1000/uL (130-400); RED BLOOD CELL COUNT 2.04 mill/uL (4.7-6.1); RED CELL DISTRIBUTION WIDTH 16.9 % (11.6-14.6)
[2018-11-25 07:48] LABS: HEMOGLOBIN. 6.3 g/dL (14.0-18.0)
[2018-11-25] MEDS: AMLODIPINE 5MG TABLET PO SCH ×2 (08:28→21:50)
[2018-11-25 08:48] VITALS: BP 127/87
[2018-11-25 12:25] VITALS: BP 156/67
[2018-11-25 12:41] LABS: PLATELET ESTIMATE NORMAL
[2018-11-25] MEDS: POTASSIUM ACETATE 30 MEQ in DEXTROSE 5% WATER 1,000 ML IV SCH (12:45)
[2018-11-25] MEDS: MEROPENEM 1000MG in NORMAL SALINE 100ML IV SCH (13:00)
[2018-11-25] MEDS: ONDANSETRON HCL 4MG/2ML INJ IV PRN (13:00)
[2018-11-25 16:54] VITALS: BP 148/71
[2018-11-25 20:00] VITALS: BP 155/70
[2018-11-25] MEDS: EPOETIN ALFA 10000UNITS/ML VIAL SUBCUT SCH (21:51)
[2018-11-26] VITALS: BP 188/87
[2018-11-26] MEDS: CLONIDINE 0.1MG TABLET PO PRN ×2 (01:18→05:21)
[2018-11-26] MEDS: POTASSIUM ACETATE 30 MEQ in DEXTROSE 5% WATER 1,000 ML IV SCH (05:22)
[2018-11-26 08:00] VITALS: BP 170/64
[2018-11-26] MEDS: ONDANSETRON HCL 4MG/2ML INJ IV PRN (09:15)
[2018-11-26] MEDS: AMLODIPINE 5MG TABLET PO SCH (09:16)
[2018-11-26 09:38] LABS: MEAN CORPUSCULAR HEMOGLOBIN 29.8 pg (28.0-32.0); MEAN CORPUSCULAR VOLUME 94.2 fL (80.0-94.0); PLATELET 276 x1000/uL (130-400); RED BLOOD CELL COUNT 2.15 mill/uL (4.7-6.1); RED CELL DISTRIBUTION WIDTH 16.9 % (11.6-14.6)
[2018-11-26 10:11] LABS: HEMATOCRIT. 20.2 % (42.0-52.0); HEMOGLOBIN. 6.4 g/dL (14.0-18.0)
[2018-11-26 12:00] VITALS: BP 151/76
[2018-11-26] MEDS: MEROPENEM 1000MG in NORMAL SALINE 100ML IV SCH (13:31)
[2018-11-26] MEDS: NIFEDIPINE XL 30MG TAB PO SCH ×3 (13:32→21:45)
[2018-11-26 16:00] VITALS: BP 151/65
[2018-11-26 20:00] VITALS: BP 128/48
[2018-11-27] VITALS (13 sets, daily range): BP systolic 124–173; BP diastolic 51–75
[2018-11-27] MEDS: CLONIDINE 0.1MG TABLET PO PRN ×2 (04:55→18:18)
[2018-11-27 05:51] LABS: HEMATOCRIT. 26.1 % (42.0-52.0); HEMOGLOBIN. 8.1 g/dL (14.0-18.0); MEAN CORPUSCULAR HEMOGLOBIN 29.6 pg (28.0-32.0); MEAN CORPUSCULAR VOLUME 95.4 fL (80.0-94.0); MEAN PLATELET VOLUME 10.3 fl (7.4-10.4); PLATELET 230 x1000/uL (130-400); RED BLOOD CELL COUNT 2.74 mill/uL (4.7-6.1)
[2018-11-27] MEDS: POTASSIUM ACETATE 30 MEQ in DEXTROSE 5% WATER 1,000 ML IV SCH ×2 (06:12→16:11)
[2018-11-27 06:28] LABS: PHOSPHORUS 4.8 mg/dL (2.5-4.9)
[2018-11-27] MEDS: NIFEDIPINE XL 30MG TAB PO SCH (09:00)
[2018-11-27] MEDS ORDERED: BARIUM SULFATE 176 GM SUSP.RECON ONE (09:10)
[2018-11-27] MEDS ORDERED: EZ-HD SUSPENSION(BARIUM SULFATE 340GM) PO ONE (09:50)
[2018-11-27 13:26] LABS: PLATELET ESTIMATE NORMAL
[2018-11-27 15:39] LABS: PLATELET ESTIMATE NORMAL
[2018-11-27] MEDS: MEROPENEM 1000MG in NORMAL SALINE 100ML IV SCH (16:11)
[2018-11-27] MEDS ORDERED: NIFEDIPINE XL 60MG TAB PO SCH (21:00)
[2018-11-27] MEDS: DILTIAZEM HCL 60MG TABLET PO SCH (21:14)
[2018-11-28 00:48] VITALS: BP 157/64
[2018-11-28 04:42] VITALS: BP 159/69
[2018-11-28] MEDS: DILTIAZEM HCL 60MG TABLET PO SCH (05:47)
[2018-11-28 06:59] LABS: BASOPHILS % 0.3 % (0.0-2.0); EOSINOPHILS % 2.1 % (0.0-5.0); HEMATOCRIT. 26.6 % (42.0-52.0); HEMOGLOBIN. 8.4 g/dL (14.0-18.0); LYMPHOCYTES % 9.3 % (20.0-50.0); MEAN CORPUSCULAR HEMOGLOBIN 29.9 pg (28.0-32.0); MEAN CORPUSCULAR VOLUME 94.7 fL (80.0-94.0); MEAN PLATELET VOLUME 10.2 fl (7.4-10.4); MONOCYTES % 5.7 % (2.0-8.0); NEUTROPHILS % 82.6 % (40.0-76.0); PLATELET 221 x1000/uL (130-400); RED BLOOD CELL COUNT 2.81 mill/uL (4.7-6.1); RED CELL DISTRIBUTION WIDTH 17.5 % (11.6-14.6)
[2018-11-28 07:00] LABS: PHOSPHORUS 4.5 mg/dL (2.5-4.9)
[2018-11-28] MEDS ORDERED: METOPROLOL TARTRATE 25MG TABLET PO SCH (08:00)
[2018-11-28] MEDS: METOPROLOL TARTRATE 25MG TABLET PO SCH ×2 (09:55→23:03)
[2018-11-28] MEDS: AMLODIPINE 5MG TABLET PO SCH ×2 (09:55→23:02)
[2018-11-28 12:00] VITALS: BP 147/69
[2018-11-28] MEDS: MEROPENEM 1000MG in NORMAL SALINE 100ML IV SCH (13:01)
[2018-11-28] MEDS: DILTIAZEM HCL 30MG TABLET PO SCH ×2 (13:14→23:02)
[2018-11-28 15:30] VITALS: BP 156/72
[2018-11-28 20:06] VITALS: BP 182/78
[2018-11-28] MEDS ORDERED: EPOETIN ALFA 10000UNITS/ML VIAL SUBCUT SCH (21:00)
[2018-11-28] MEDS: CLONIDINE 0.1MG TABLET PO PRN (23:01)
[2018-11-28] MEDS: HYDRALAZINE 20MG/ML VIAL IV PRN (23:01)
[2018-11-29 00:13] VITALS: BP 126/54
[2018-11-29 04:00] VITALS: BP 152/65
[2018-11-29] MEDS: DILTIAZEM HCL 30MG TABLET PO SCH (05:16)
[2018-11-29 06:48] LABS: HEMATOCRIT. 30.1 % (42.0-52.0); HEMOGLOBIN. 9.5 g/dL (14.0-18.0); MEAN CORPUSCULAR HEMOGLOBIN 30.2 pg (28.0-32.0); MEAN CORPUSCULAR VOLUME 95.1 fL (80.0-94.0); MEAN PLATELET VOLUME 10.5 fl (7.4-10.4); PLATELET 236 x1000/uL (130-400); RED BLOOD CELL COUNT 3.16 mill/uL (4.7-6.1); RED CELL DISTRIBUTION WIDTH 16.9 % (11.6-14.6)
[2018-11-29 08:00] VITALS: BP 124/65
[2018-11-29] MEDS ORDERED: METOPROLOL TARTRATE 50MG TABLET PO SCH (09:00)
[2018-11-29] MEDS ORDERED: NIFEDIPINE XL 90MG TAB PO SCH (09:00)
[2018-11-29] MEDS ORDERED: LIDOCAINE HCL 1% 20ML VIAL (Pyxis) INJ ONE (09:18)
[2018-11-29 11:45] VITALS: BP 140/63
[2018-11-29 11:56] LABS: PLATELET ESTIMATE NORMAL
[2018-11-29] MEDS: MEROPENEM 1000MG in NORMAL SALINE 100ML IV SCH (12:13)
[2018-11-29 16:41] VITALS: BP 140/63
[2018-11-29] MEDS ORDERED: METOPROLOL TARTRATE 25MG TABLET PO SCH (21:00)
== END 2018-11-29 16:50 | disposition home health service (06) | DRG 871 ==
LOC: ER 11:39 → EDBEDREQ 12:13 → EDBEDREQSVC 12:13 → 6WST 13:33 → MERGE 13:33 → EDBEDREQ 13:47 → ENRESERV 20:51
PROVIDERS: ADMIT Internal Medicine; ATTEND Internal Medicine
PROC: 30233N1 Transfusion of Nonautologous Red Blood Cells into Peripheral Vein, Percutaneous Approach (ICD-10-PCS; 2018-11-27)
PROC: 4A00X4Z Measurement of Central Nervous Electrical Activity, External Approach (ICD-10-PCS; principal; 2018-11-28)
PROC: 02H633Z Insertion of Infusion Device into Right Atrium, Percutaneous Approach (ICD-10-PCS; 2018-11-28)
PROC: B2141ZZ Fluoroscopy of Right Heart using Low Osmolar Contrast (ICD-10-PCS; 2018-11-28)
PROC: B244ZZZ Ultrasonography of Right Heart (ICD-10-PCS; 2018-11-28)
DX: A41.9 Sepsis, unspecified organism (principal); G93.41 Metabolic encephalopathy; E43 Unspecified severe protein-calorie malnutrition; N18.6 End stage renal disease; N39.0 Urinary tract infection, site not specified; N17.9 Acute kidney failure, unspecified; E87.2 Acidosis; I47.2 Ventricular tachycardia; I13.2 Hypertensive heart and chronic kidney disease with heart failure and with stage 5 chronic kidney disease, or end stage renal disease; Z68.1 Body mass index [BMI] 19.9 or less, adult; I69.351 Hemiplegia and hemiparesis following cerebral infarction affecting right dominant side; R65.20 Severe sepsis without septic shock; B96.89 Other specified bacterial agents as the cause of diseases classified elsewhere; D64.9 Anemia, unspecified; I27.20 Pulmonary hypertension, unspecified; D50.9 Iron deficiency anemia, unspecified; F03.90 Unspecified dementia, unspecified severity, without behavioral disturbance, psychotic disturbance, mood disturbance, and anxiety; L89.890 Pressure ulcer of other site, unstageable; L89.150 Pressure ulcer of sacral region, unstageable; Z53.29 Procedure and treatment not carried out because of patient's decision for other reasons; Z51.5 Encounter for palliative care; R13.10 Dysphagia, unspecified; K21.9 Gastro-esophageal reflux disease without esophagitis; Z16.12 Extended spectrum beta lactamase (ESBL) resistance; I35.8 Other nonrheumatic aortic valve disorders; E11.22 Type 2 diabetes mellitus with diabetic chronic kidney disease; G40.909 Epilepsy, unspecified, not intractable, without status epilepticus; I50.9 Heart failure, unspecified; N40.0 Benign prostatic hyperplasia without lower urinary tract symptoms; E87.6 Hypokalemia; I48.91 Unspecified atrial fibrillation; Z82.49 Family history of ischemic heart disease and other diseases of the circulatory system
CPT/HCPCS: 36415; 36430; 36569; 70551; 71045; 74018; 74246; 76937; 77001; 80048; 82140; 82550; 82553; 82962; 83605; 83735; 84100; 84134; 84145; 84443; 84484; 85379; 86850; 86900; 86920; 87077; 87186; 92610; 93005; 93306; 93970; 96365; 97162; 97166; 99291; A6261; C1725; J0360; J0885; J2185; J2405; J2543; J3370; J3490; J7030; J7040; J7050; J7070; P9016

== ENCOUNTER 2018-12-08 10:31 | Inpatient (IN) | payer MEDICARE, MEDICAID ==
[~2018-12-08] VITALS: Ht 177.8 cm; Wt 90.3 kg
[2018-12-08] VITALS (33 sets, daily range): BP systolic 112–149; BP diastolic 60–88
[~2018-12-08 10:31] MED LIST changes: -ASA5EC PO; -CLOP75TA16 PO
[2018-12-08] MEDS ORDERED: ACETAMINOPHEN 650MG SUPP PR STA (10:38)
[2018-12-08] MEDS ORDERED: ETOMIDATE 2MG/ML 10ML VIAL IV ONE (10:39)
[2018-12-08] MEDS ORDERED: SUCCINYLCHOLINE CHLORIDE 200MG/10ML IV ONE (10:39)
[2018-12-08] MEDS ORDERED: DEXTROSE 50% WATER 50ML SYRINGE IV ONE ×2 (10:43→14:15)
[2018-12-08] MEDS ORDERED: SODIUM CHLORIDE 0.9% 1000ML BAG (SEPSIS BOLUS) IV ONE ×2 (10:45→12:15)
[2018-12-08] MEDS ORDERED: VANCOMYCIN 1 G PREMIX 200 ML IV ONE (10:45)
[2018-12-08] MEDS ORDERED: PIPERACILLIN/TAZ 3.375G PREMIX 50 ML IV ONE (10:45)
[2018-12-08 11:01] LABS: HEMATOCRIT. 26.4 % (42.0-52.0); HEMOGLOBIN. 8.4 g/dL (14.0-18.0); MEAN CORPUSCULAR HEMOGLOBIN 30.4 pg (28.0-32.0); MEAN CORPUSCULAR VOLUME 95.6 fL (80.0-94.0); MEAN PLATELET VOLUME 10.4 fl (7.4-10.4); PLATELET 165 x1000/uL (130-400); RED BLOOD CELL COUNT 2.77 mill/uL (4.7-6.1); RED CELL DISTRIBUTION WIDTH 17.1 % (11.6-14.6)
[2018-12-08 11:05] LABS: CHLORIDE 120 mEq/L (98-107); INR 1.5; PROTHROMBIN TIME 14.8 sec (9.1-11.1)
[2018-12-08 11:10] LABS: CLARITY URINE CLOUDY (CLEAR); COLOR URINE YELLOW (YELLOW); KETONES URINE NEGATIVE (NEGATIVE); LEUKOCYTE ESTERASE URINE NEGATIVE (NEGATIVE); NITRITE URINE NEGATIVE (NEGATIVE); OCCULT BLOOD URINE NEGATIVE (NEGATIVE); PROTEIN URINE 3+ (NEGATIVE); SPECIFIC GRAVITY URINE 1.015 (1.005-1.030); UROBILINOGEN URINE 0.2 E.U./dL (0.2-1.0)
[2018-12-08] MEDS ORDERED: MIDAZOLAM HCL 50 MG in DEXTROSE 5% WATER 40 ML IV ONE (11:45)
[2018-12-08] MEDS ORDERED: MIDAZOLAM HCL 2 MG/2 ML VIAL IV ONE (11:45)
[2018-12-08 11:49] LABS: PLATELET ESTIMATE NORMAL
[2018-12-08] MEDS: DEXT 5%/0.45% NACL 1000ML 1,000 ML IV SCH ×2 (11:55→19:12)
[2018-12-08] MEDS ORDERED: LORAZEPAM 2MG/ML CPJ IV PRN (12:00)
[2018-12-08] MEDS ORDERED: DIPHENHYDRAMINE 50MG/ML VIAL IV PRN (12:00)
[2018-12-08] MEDS ORDERED: ONDANSETRON HCL 4MG/2ML INJ IV PRN (12:00)
[2018-12-08] MEDS ORDERED: DOCUSATE SODIUM 100MG CAPSULE PO PRN (12:00)
[2018-12-08] MEDS ORDERED: IPRATROPIUM/ALBUTEROL 0.5-3(2.5)MG/3ML NEB INH PRN (12:00)
[2018-12-08] MEDS ORDERED: GUAIFENESIN 200MG/10ML SUGAR FREE UDC PO PRN (12:00)
[2018-12-08] MEDS ORDERED: ACETAMINOPHEN 325MG TABLET PO PRN (12:00)
[2018-12-08] MEDS ORDERED: MAGNESIUM/ALUMINUM HYDROXIDE/SIMETHICONE 30ML UDC PO PRN (12:00)
[2018-12-08] MEDS ORDERED: PIPERACILLIN/TAZ 3.375G PREMIX 50 ML IV SCH (12:00)
[2018-12-08] MEDS ORDERED: MIDAZOLAM HCL 50 MG in DEXTROSE 5% WATER 40 ML IV PRN (12:15)
[2018-12-08 12:24] LABS: BG CARBOXYHEMOGLOBIN 0.3 % (0.5-1.5); BG DEOXYHEMOGLOBIN 0.7 % (0.0-5.0); BG FRACTION INSPIRED OXYGEN 100; BG HCO3 ACT 14.3 mmol/L (22.0-26.0); BG METHEMOGLOBIN 0.7 % (0.0-1.5); BG OXYGEN SATURATION 99.3 % (92.0-98.5); BG OXYHEMOGLOBIN 98.3 % (94.0-97.0); BG PCO2 25.3 mmHg (35.0-45.0); BG PH 7.369 (7.350-7.450); BG PO2 321.8 mmHg (75.0-100.0); BG SAMPLE SITE RIGHT BRACHIAL; BG TIDAL VOLUME(mL) 500 mL; BG TOTAL HEMOGLOBIN 7.4 g/dL (12.0-18.0); BG VENT MODE VENT - A/C; BG VENT RATE 14 set
[2018-12-08] MEDS ORDERED: LIDOCAINE HCL 1% 20ML VIAL (Pyxis) INJ ONE (13:01)
[2018-12-08] MEDS ORDERED: SODIUM CHLORIDE 3% FOR INH 4ML UD NEB INH SCH (13:15)
[2018-12-08] MEDS ORDERED: PROPOFOL 10MG/ML 100ML 100 ML IV PRN (14:30)
[2018-12-08] MEDS: PANTOPRAZOLE SODIUM 40 MG/VIAL IV SCH (14:30)
[2018-12-08] MEDS ORDERED: HYDROMORPHONE HCL/PF 2MG/ML CPJ IV PRN (16:16)
[2018-12-08 18:20] LABS: HEMATOCRIT 22.7 % (42.0-52.0); HEMOGLOBIN 7.1 g/dL (14.0-18.0)
[2018-12-08] MEDS: MEROPENEM 500 MG in SODIUM CHLORIDE 0.9% 50 ML IV SCH (19:09)
[2018-12-08] MEDS ORDERED: PIPERACILLIN/TAZ 2.25G PREMIX 50 ML IV SCH (20:00)
[2018-12-08] MEDS ORDERED: DEXTROSE 50% WATER 50ML SYRINGE IV PRN (20:00)
[2018-12-08] MEDS: IPRATROPIUM/ALBUTEROL 0.5-3(2.5)MG/3ML NEB HHN SCH (20:29)
[2018-12-08] MEDS ORDERED: NA PHOS,M-B/NA PHOS,DI-BA ENEMA 118ML PR PRN (21:00)
[2018-12-08] MEDS ORDERED: INSULIN LISPRO 100 UNITS/ML SUBCUT SCH (21:00)
[2018-12-09] VITALS (64 sets, daily range): BP systolic 103–179; BP diastolic 54–111
[2018-12-09] MEDS: BLOOD SUGAR DIAGNOSTIC STRIP TEST SCH ×4 (00:13→18:00)
[2018-12-09 00:34] LABS: HEMATOCRIT 24.2 % (42.0-52.0); HEMOGLOBIN 7.6 g/dL (14.0-18.0)
[2018-12-09] MEDS: IPRATROPIUM/ALBUTEROL 0.5-3(2.5)MG/3ML NEB HHN SCH ×6 (00:48→20:10)
[2018-12-09] MEDS: ACETYLCYSTEINE 100MG/ML 10% VIAL 4ML INH SCH ×3 (00:49→15:41)
[2018-12-09 04:50] LABS: HEMATOCRIT. 24.5 % (42.0-52.0); HEMOGLOBIN. 7.8 g/dL (14.0-18.0); MEAN CORPUSCULAR HEMOGLOBIN 30.1 pg (28.0-32.0); MEAN CORPUSCULAR VOLUME 94.6 fL (80.0-94.0); MEAN PLATELET VOLUME 8.7 fl (7.4-10.4); PLATELET 112 x1000/uL (130-400); RED BLOOD CELL COUNT 2.58 mill/uL (4.7-6.1); RED CELL DISTRIBUTION WIDTH 17.3 % (11.6-14.6)
[2018-12-09 05:13] LABS: LDL CHOLESTEROL 16 mg/dL (5-100)
[2018-12-09 05:14] LABS: T4 FREE 0.78 ng/dL (0.76-1.46)
[2018-12-09 05:15] LABS: HDL CHOLESTEROL 34 mg/dL (40-59)
[2018-12-09] MEDS: MEROPENEM 500 MG in SODIUM CHLORIDE 0.9% 50 ML IV SCH (05:59)
[2018-12-09 07:02] LABS: CHLORIDE 121 mEq/L (98-107)
[2018-12-09 07:35] LABS: BG CARBOXYHEMOGLOBIN 0.3 % (0.5-1.5); BG DEOXYHEMOGLOBIN 0.8 % (0.0-5.0); BG FRACTION INSPIRED OXYGEN 50; BG HCO3 ACT 14.6 mmol/L (22.0-26.0); BG METHEMOGLOBIN 0.2 % (0.0-1.5); BG OXYGEN SATURATION 99.2 % (92.0-98.5); BG OXYHEMOGLOBIN 98.7 % (94.0-97.0); BG PCO2 23.9 mmHg (35.0-45.0); BG PH 7.404 (7.350-7.450); BG PO2 207.4 mmHg (75.0-100.0); BG SAMPLE SITE RIGHT BRACHIAL; BG TIDAL VOLUME(mL) 500 mL; BG TOTAL HEMOGLOBIN 7.8 g/dL (12.0-18.0); BG VENT MODE VENT - A/C; BG VENT RATE 14 set
[2018-12-09] MEDS: SODIUM CHLORIDE 3% FOR INH 4ML UD NEB INH SCH ×3 (08:41→20:10)
[2018-12-09] MEDS ORDERED: PANTOPRAZOLE SODIUM 40 MG/VIAL IV SCH (09:00)
[2018-12-09] MEDS: ASPIRIN 81MG EC TABLET PO SCH (09:41)
[2018-12-09] MEDS: PANTOPRAZOLE SODIUM 40 MG/VIAL IV SCH (09:41)
[2018-12-09 10:22] LABS: PLATELET ESTIMATE DECREASED
[2018-12-09] MEDS: INSULIN LISPRO 100 UNITS/ML SUBCUT SCH ×2 (12:00→18:00)
[2018-12-09 13:02] LABS: HEMOGLOBIN 7.6 g/dL (14.0-18.0)
[2018-12-09] MEDS: CITRIC ACID/SODIUM CITRATE SOLN 30ML UDC NG SCH ×2 (15:30→17:00)
[2018-12-09] MEDS ORDERED: KCL 20MEQ/100ML PREMIX 100 ML IV NR (17:00)
[2018-12-09] MEDS ORDERED: VANCOMYCIN 1 G PREMIX 200 ML IV SCH (20:00)
[2018-12-09] MEDS: MEROPENEM 1000MG in NORMAL SALINE 100ML IV SCH (20:54)
[2018-12-10] VITALS (47 sets, daily range): BP systolic 126–193; BP diastolic 52–124
[2018-12-10] MEDS: ACETYLCYSTEINE 100MG/ML 10% VIAL 4ML INH SCH ×3 (00:20→16:21)
[2018-12-10] MEDS: IPRATROPIUM/ALBUTEROL 0.5-3(2.5)MG/3ML NEB HHN SCH ×6 (00:20→20:55)
[2018-12-10] MEDS: PROPOFOL 10MG/ML 100ML 100 ML IV PRN (04:28)
[2018-12-10] MEDS: DEXT 5%/0.45% NACL 1000ML 1,000 ML IV SCH ×2 (04:29→12:34)
[2018-12-10] MEDS: SODIUM CHLORIDE 3% FOR INH 4ML UD NEB INH SCH (04:31)
[2018-12-10 05:21] LABS: MEAN CORPUSCULAR HEMOGLOBIN 29.8 pg (28.0-32.0); MEAN CORPUSCULAR VOLUME 93.4 fL (80.0-94.0); MEAN PLATELET VOLUME 11.1 fl (7.4-10.4); PLATELET 109 x1000/uL (130-400); RED BLOOD CELL COUNT 2.15 mill/uL (4.7-6.1); RED CELL DISTRIBUTION WIDTH 17.3 % (11.6-14.6)
[2018-12-10 05:25] LABS: CHLORIDE 121 mEq/L (98-107)
[2018-12-10 05:39] LABS: PHOSPHORUS 5.3 mg/dL (2.5-4.9)
[2018-12-10] MEDS: INSULIN LISPRO 100 UNITS/ML SUBCUT SCH ×5 (06:00→23:40)
[2018-12-10] MEDS: BLOOD SUGAR DIAGNOSTIC STRIP TEST SCH ×5 (06:00→23:40)
[2018-12-10 06:01] LABS: HEMATOCRIT. 20.1 % (42.0-52.0); HEMOGLOBIN. 6.4 g/dL (14.0-18.0)
[2018-12-10] MEDS: CITRIC ACID/SODIUM CITRATE SOLN 30ML UDC NG SCH ×3 (08:25→17:07)
[2018-12-10] MEDS: ASPIRIN 81MG EC TABLET PO SCH (08:26)
[2018-12-10] MEDS: PANTOPRAZOLE SODIUM 40 MG/VIAL IV SCH (08:26)
[2018-12-10 09:15] LABS: BG BASE EXCESS -9.7 mmol/L (-2.0-2.0); BG CARBOXYHEMOGLOBIN 0.6 % (0.5-1.5); BG DEOXYHEMOGLOBIN 0.4 % (0.0-5.0); BG FRACTION INSPIRED OXYGEN 50; BG HCO3 ACT 14.5 mmol/L (22.0-26.0); BG METHEMOGLOBIN 0.3 % (0.0-1.5); BG OXYGEN SATURATION 99.6 % (92.0-98.5); BG OXYHEMOGLOBIN 98.7 % (94.0-97.0); BG PCO2 25.6 mmHg (35.0-45.0); BG PH 7.372 (7.350-7.450); BG PO2 243.5 mmHg (75.0-100.0); BG SAMPLE SITE LEFT RADIAL; BG TIDAL VOLUME(mL) 500 mL; BG TOTAL HEMOGLOBIN 6.8 g/dL (12.0-18.0); BG VENT MODE VENT - A/C; BG VENT RATE 14 set
[2018-12-10] MEDS ORDERED: PROPOFOL 10MG/ML 100ML 100 ML IV PRN (09:15)
[2018-12-10 13:35] LABS: PLATELET ESTIMATE SLIGHTLY DECREASED
[2018-12-10] MEDS: SODIUM BICARBONATE 50 MEQ in DEXTROSE 5% WATER 1,000 ML IV SCH (14:48)
[2018-12-10] MEDS: CLONIDINE 0.1MG TABLET PO PRN (20:55)
[2018-12-10] MEDS: MEROPENEM 1000MG in NORMAL SALINE 100ML IV SCH (20:55)
[2018-12-10] MEDS: EPOETIN ALFA 10000UNITS/ML VIAL SUBCUT SCH (20:56)
[2018-12-10] MEDS ORDERED: FUROSEMIDE 40MG/4ML VIAL IVP NR (21:45)
[2018-12-10] MEDS ORDERED: HYDRALAZINE 20MG/ML VIAL IV NR (21:45)
[2018-12-10] MEDS ORDERED: DIPHENHYDRAMINE 50MG/ML VIAL IV NR (21:45)
[2018-12-10] MEDS ORDERED: ACETAMINOPHEN 650MG/20.3ML UDC NG NR (21:45)
[2018-12-11] VITALS (39 sets, daily range): BP systolic 126–178; BP diastolic 61–90
[2018-12-11] MEDS: IPRATROPIUM/ALBUTEROL 0.5-3(2.5)MG/3ML NEB HHN SCH ×7 (00:17→23:42)
[2018-12-11] MEDS: ACETYLCYSTEINE 100MG/ML 10% VIAL 4ML INH SCH ×4 (00:18→23:42)
[2018-12-11] MEDS: PROPOFOL 10MG/ML 100ML 100 ML IV PRN ×2 (05:29→14:29)
[2018-12-11 05:42] LABS: HEMATOCRIT. 28.6 % (42.0-52.0); HEMOGLOBIN. 9.5 g/dL (14.0-18.0); MEAN CORPUSCULAR VOLUME 87.3 fL (80.0-94.0); MEAN PLATELET VOLUME 9.9 fl (7.4-10.4); PLATELET 88 x1000/uL (130-400); RED BLOOD CELL COUNT 3.28 mill/uL (4.7-6.1); RED CELL DISTRIBUTION WIDTH 20.2 % (11.6-14.6)
[2018-12-11] MEDS: BLOOD SUGAR DIAGNOSTIC STRIP TEST SCH ×3 (06:00→17:09)
[2018-12-11] MEDS: INSULIN LISPRO 100 UNITS/ML SUBCUT SCH ×3 (06:00→17:09)
[2018-12-11 06:10] LABS: PHOSPHORUS 5.1 mg/dL (2.5-4.9)
[2018-12-11] MEDS: ASPIRIN 81MG EC TABLET PO SCH (08:25)
[2018-12-11] MEDS: CITRIC ACID/SODIUM CITRATE SOLN 30ML UDC NG SCH ×3 (08:25→16:58)
[2018-12-11] MEDS: PANTOPRAZOLE SODIUM 40 MG/VIAL IV SCH (08:25)
[2018-12-11] MEDS: CLONIDINE 0.1MG TABLET PO PRN ×2 (08:26→13:57)
[2018-12-11] MEDS: SODIUM BICARBONATE 50 MEQ in DEXTROSE 5% WATER 1,000 ML IV SCH (08:56)
[2018-12-11 09:04] LABS: BG BASE EXCESS -5.8 mmol/L (-2.0-2.0); BG CARBOXYHEMOGLOBIN 0.3 % (0.5-1.5); BG DEOXYHEMOGLOBIN 1.3 % (0.0-5.0); BG FRACTION INSPIRED OXYGEN 40; BG HCO3 ACT 17.9 mmol/L (22.0-26.0); BG OXYGEN SATURATION 98.7 % (92.0-98.5); BG OXYHEMOGLOBIN 98.4 % (94.0-97.0); BG PH 7.409 (7.350-7.450); BG PO2 163.3 mmHg (75.0-100.0); BG SAMPLE SITE RIGHT BRACHIAL; BG TIDAL VOLUME(mL) 500 mL; BG TOTAL HEMOGLOBIN 9.5 g/dL (12.0-18.0); BG VENT MODE VENT - A/C; BG VENT RATE 14 set
[2018-12-11] MEDS: AMLODIPINE 10MG TABLET NG SCH (11:24)
[2018-12-11] MEDS: TAMSULOSIN HCL 0.4MG SR CAPSULE PO SCH (11:24)
[2018-12-11] MEDS: METOCLOPRAMIDE HCL 10MG/2ML VIAL IV SCH ×2 (11:24→16:58)
[2018-12-11] MEDS ORDERED: POTASSIUM CHLORIDE INJ 40 MEQ in DEXT 5% WATER 250 ML IV NR (11:30)
[2018-12-11 14:22] LABS: PLATELET ESTIMATE DECREASED
[2018-12-11] MEDS: MEROPENEM 1000MG in NORMAL SALINE 100ML IV SCH (20:57)
[2018-12-12] VITALS (46 sets, daily range): BP systolic 120–165; BP diastolic 61–100
[2018-12-12] MEDS: BLOOD SUGAR DIAGNOSTIC STRIP TEST SCH ×4 (00:11→17:37)
[2018-12-12] MEDS: METOCLOPRAMIDE HCL 10MG/2ML VIAL IV SCH ×4 (00:32→17:55)
[2018-12-12] MEDS: SODIUM BICARBONATE 50 MEQ in DEXTROSE 5% WATER 1,000 ML IV SCH (02:06)
[2018-12-12] MEDS: IPRATROPIUM/ALBUTEROL 0.5-3(2.5)MG/3ML NEB HHN SCH ×5 (03:52→20:16)
[2018-12-12 05:43] LABS: HEMATOCRIT. 29.4 % (42.0-52.0); HEMOGLOBIN. 9.8 g/dL (14.0-18.0); MEAN CORPUSCULAR HEMOGLOBIN 28.8 pg (28.0-32.0); MEAN CORPUSCULAR VOLUME 86.4 fL (80.0-94.0); MEAN PLATELET VOLUME 10.4 fl (7.4-10.4); PLATELET 85 x1000/uL (130-400); RED BLOOD CELL COUNT 3.41 mill/uL (4.7-6.1); RED CELL DISTRIBUTION WIDTH 20.7 % (11.6-14.6)
[2018-12-12] MEDS: INSULIN LISPRO 100 UNITS/ML SUBCUT SCH ×4 (06:00→17:37)
[2018-12-12 06:35] LABS: PHOSPHORUS 4.7 mg/dL (2.5-4.9)
[2018-12-12] MEDS: ACETYLCYSTEINE 100MG/ML 10% VIAL 4ML INH SCH ×2 (07:57→15:56)
[2018-12-12 08:16] LABS: BG BASE EXCESS -4.1 mmol/L (-2.0-2.0); BG CARBOXYHEMOGLOBIN 0.3 % (0.5-1.5); BG DEOXYHEMOGLOBIN 1.2 % (0.0-5.0); BG FRACTION INSPIRED OXYGEN 40; BG HCO3 ACT 19.1 mmol/L (22.0-26.0); BG METHEMOGLOBIN 0.3 % (0.0-1.5); BG OXYGEN SATURATION 98.8 % (92.0-98.5); BG OXYHEMOGLOBIN 98.2 % (94.0-97.0); BG PH 7.437 (7.350-7.450); BG PO2 163.1 mmHg (75.0-100.0); BG SAMPLE SITE RIGHT RADIAL; BG TIDAL VOLUME(mL) 500 mL; BG TOTAL HEMOGLOBIN 11.1 g/dL (12.0-18.0); BG VENT MODE VENT - A/C; BG VENT RATE 14 set
[2018-12-12] MEDS ORDERED: POTASSIUM CHLORIDE 20MEQ/PACKET PO SCH (08:30)
[2018-12-12] MEDS ORDERED: KCL 20MEQ/100ML PREMIX 100 ML IV SCH (08:30)
[2018-12-12] MEDS ORDERED: METOPROLOL TARTRATE 50MG TABLET PO SCH (09:00)
[2018-12-12] MEDS: PANTOPRAZOLE SODIUM 40 MG/VIAL IV SCH (09:07)
[2018-12-12] MEDS: TAMSULOSIN HCL 0.4MG SR CAPSULE PO SCH (09:08)
[2018-12-12] MEDS: ASPIRIN 81MG EC TABLET PO SCH (09:08)
[2018-12-12] MEDS: AMLODIPINE 10MG TABLET NG SCH (09:08)
[2018-12-12 09:18] LABS: PLATELET ESTIMATE DECREASED
[2018-12-12] MEDS: PROPOFOL 10MG/ML 100ML 100 ML IV PRN (09:36)
[2018-12-12] MEDS: POTASSIUM CHLORIDE INJ 40 MEQ in DEXTROSE 5% WATER 1,000 ML IV SCH (11:15)
[2018-12-12 11:45] LABS: BG BASE EXCESS -4.8 mmol/L (-2.0-2.0); BG CARBOXYHEMOGLOBIN 0.3 % (0.5-1.5); BG DEOXYHEMOGLOBIN 1.1 % (0.0-5.0); BG FRACTION INSPIRED OXYGEN 40; BG HCO3 ACT 18.3 mmol/L (22.0-26.0); BG METHEMOGLOBIN 0.3 % (0.0-1.5); BG OXYGEN SATURATION 98.9 % (92.0-98.5); BG OXYHEMOGLOBIN 98.3 % (94.0-97.0); BG PCO2 28.2 mmHg (35.0-45.0); BG PH 7.431 (7.350-7.450); BG PRESSURE SUPPORT 8; BG SAMPLE SITE RIGHT RADIAL; BG TOTAL HEMOGLOBIN 11.3 g/dL (12.0-18.0); BG VENT MODE VENT - CPAP
[2018-12-12] MEDS: CARVEDILOL 3.125 MG TABLET PO SCH ×2 (13:18→21:00)
[2018-12-12] MEDS ORDERED: VANCOMYCIN 750 MG PREMIX 150 ML IV NR (16:00)
[2018-12-12] MEDS: MEROPENEM 1000MG in NORMAL SALINE 100ML IV SCH (21:00)
[2018-12-12] MEDS: EPOETIN ALFA 10000UNITS/ML VIAL SUBCUT SCH (21:00)
[2018-12-13] VITALS (45 sets, daily range): BP systolic 128–165; BP diastolic 47–89
[2018-12-13] MEDS: IPRATROPIUM/ALBUTEROL 0.5-3(2.5)MG/3ML NEB HHN SCH ×7 (00:11→23:58)
[2018-12-13] MEDS: ACETYLCYSTEINE 100MG/ML 10% VIAL 4ML INH SCH ×3 (00:11→16:47)
[2018-12-13] MEDS: METOCLOPRAMIDE HCL 10MG/2ML VIAL IV SCH ×4 (01:03→17:34)
[2018-12-13] MEDS: POTASSIUM CHLORIDE INJ 40 MEQ in DEXTROSE 5% WATER 1,000 ML IV SCH (05:00)
[2018-12-13 05:47] LABS: HEMATOCRIT. 29.7 % (42.0-52.0); HEMOGLOBIN. 9.7 g/dL (14.0-18.0); MEAN CORPUSCULAR HEMOGLOBIN 28.6 pg (28.0-32.0); MEAN PLATELET VOLUME 10.7 fl (7.4-10.4); PLATELET 86 x1000/uL (130-400); RED BLOOD CELL COUNT 3.38 mill/uL (4.7-6.1)
[2018-12-13] MEDS: BLOOD SUGAR DIAGNOSTIC STRIP TEST SCH ×4 (06:00→17:35)
[2018-12-13] MEDS: INSULIN LISPRO 100 UNITS/ML SUBCUT SCH ×4 (06:00→17:35)
[2018-12-13 06:12] LABS: PHOSPHORUS 5.2 mg/dL (2.5-4.9)
[2018-12-13] MEDS: CARVEDILOL 3.125 MG TABLET PO SCH (09:38)
[2018-12-13] MEDS: ASPIRIN 81MG EC TABLET PO SCH (09:39)
[2018-12-13] MEDS: AMLODIPINE 10MG TABLET NG SCH (09:39)
[2018-12-13] MEDS: PANTOPRAZOLE SODIUM 40 MG/VIAL IV SCH (09:39)
[2018-12-13] MEDS: TAMSULOSIN HCL 0.4MG SR CAPSULE PO SCH (09:39)
[2018-12-13 10:02] LABS: PLATELET ESTIMATE DECREASED
[2018-12-13] MEDS: HYDRALAZINE HCL 25MG TABLET PO SCH ×2 (13:39→22:26)
[2018-12-13] MEDS: MEROPENEM 1000MG in NORMAL SALINE 100ML IV SCH (22:25)
[2018-12-13] MEDS: CARVEDILOL 6.25 MG TABLET PO SCH (22:26)
[2018-12-14] VITALS (20 sets, daily range): BP systolic 108–164; BP diastolic 60–86
[2018-12-14] MEDS: BLOOD SUGAR DIAGNOSTIC STRIP TEST SCH ×4 (00:31→18:19)
[2018-12-14] MEDS: METOCLOPRAMIDE HCL 10MG/2ML VIAL IV SCH ×4 (00:46→18:24)
[2018-12-14] MEDS: IPRATROPIUM/ALBUTEROL 0.5-3(2.5)MG/3ML NEB HHN SCH ×5 (03:54→21:23)
[2018-12-14] MEDS: INSULIN LISPRO 100 UNITS/ML SUBCUT SCH ×4 (06:00→18:00)
[2018-12-14 06:01] LABS: BASOPHILS % 0.8 % (0.0-2.0); EOSINOPHILS % 1.6 % (0.0-5.0); HEMATOCRIT. 32.7 % (42.0-52.0); HEMOGLOBIN. 10.5 g/dL (14.0-18.0); LYMPHOCYTES % 9.1 % (20.0-50.0); MEAN CORPUSCULAR HEMOGLOBIN 28.5 pg (28.0-32.0); MEAN CORPUSCULAR VOLUME 89.2 fL (80.0-94.0); MEAN PLATELET VOLUME 11.2 fl (7.4-10.4); MONOCYTES % 6.4 % (2.0-8.0); NEUTROPHILS % 82.1 % (40.0-76.0); PLATELET 94 x1000/uL (130-400); RED BLOOD CELL COUNT 3.67 mill/uL (4.7-6.1)
[2018-12-14] MEDS: HYDRALAZINE HCL 25MG TABLET PO SCH (07:01)
[2018-12-14] MEDS: TAMSULOSIN HCL 0.4MG SR CAPSULE PO SCH (08:28)
[2018-12-14] MEDS: PANTOPRAZOLE SODIUM 40 MG/VIAL IV SCH (08:28)
[2018-12-14] MEDS: CARVEDILOL 6.25 MG TABLET PO SCH (08:28)
[2018-12-14] MEDS: ASPIRIN 81MG EC TABLET PO SCH (08:28)
[2018-12-14] MEDS: AMLODIPINE 10MG TABLET NG SCH (08:28)
[2018-12-14] MEDS ORDERED: HYDRALAZINE HCL 50MG TABLET PO SCH (14:00)
[2018-12-14] MEDS: HYDRALAZINE HCL 100MG TABLET PO SCH ×2 (17:43→22:39)
[2018-12-14] MEDS: CARVEDILOL 12.5MG TABLET PO SCH (21:00)
[2018-12-14] MEDS: AMLODIPINE 5MG TABLET PO SCH (21:00)
[2018-12-14] MEDS ORDERED: EPOETIN ALFA 10000UNITS/ML VIAL SUBCUT SCH (21:00)
[2018-12-14] MEDS: MEROPENEM 1000MG in NORMAL SALINE 100ML IV SCH (21:55)
[2018-12-14] MEDS ORDERED: EPOETIN ALFA 10000UNITS/ML VIAL SUBCUT NR (23:00)
[2018-12-15] VITALS: BP 113/59
[2018-12-15] MEDS: BLOOD SUGAR DIAGNOSTIC STRIP TEST SCH ×4 (00:38→17:57)
[2018-12-15] MEDS: IPRATROPIUM/ALBUTEROL 0.5-3(2.5)MG/3ML NEB HHN SCH ×6 (00:39→21:35)
[2018-12-15] MEDS: METOCLOPRAMIDE HCL 10MG/2ML VIAL IV SCH ×4 (01:13→17:57)
[2018-12-15 04:00] VITALS: BP 125/77
[2018-12-15] MEDS: INSULIN LISPRO 100 UNITS/ML SUBCUT SCH ×4 (06:00→17:57)
[2018-12-15] MEDS: HYDRALAZINE HCL 100MG TABLET PO SCH (06:32)
[2018-12-15 08:00] VITALS: BP 159/69
[2018-12-15] MEDS: DUTASTERIDE 0.5MG CAPSULE PO SCH (08:57)
[2018-12-15] MEDS: PANTOPRAZOLE SODIUM 40 MG/VIAL IV SCH (08:57)
[2018-12-15] MEDS: ZINC SULFATE 220 MG ( 50 ) CAPSULE PO SCH (08:58)
[2018-12-15] MEDS: CARVEDILOL 12.5MG TABLET PO SCH ×2 (08:58→21:41)
[2018-12-15] MEDS: FISH OIL/OMEGA-3 FATTY ACIDS 1000MG CAPSULE PO SCH (08:58)
[2018-12-15] MEDS: AMLODIPINE 5MG TABLET PO SCH ×2 (08:59→21:41)
[2018-12-15] MEDS: ASPIRIN 81MG EC TABLET PO SCH (08:59)
[2018-12-15] MEDS: TAMSULOSIN HCL 0.4MG SR CAPSULE PO SCH (08:59)
[2018-12-15] MEDS ORDERED: TAMSULOSIN HCL 0.4MG SR CAPSULE PO SCH (09:00)
[2018-12-15 12:00] VITALS: BP 160/68
[2018-12-15] MEDS: HYDRALAZINE HCL 50MG TABLET PO SCH ×2 (14:00→21:41)
[2018-12-15 16:00] VITALS: BP 158/72
[2018-12-15] MEDS ORDERED: VANCOMYCIN 750 MG PREMIX 150 ML IV NR (18:00)
[2018-12-15 20:00] VITALS: BP 156/74
[2018-12-15] MEDS: MEROPENEM 1000MG in NORMAL SALINE 100ML IV SCH (21:41)
[2018-12-16] VITALS: BP 128/58
[2018-12-16] MEDS: IPRATROPIUM/ALBUTEROL 0.5-3(2.5)MG/3ML NEB HHN SCH ×6 (00:58→21:05)
[2018-12-16 04:00] VITALS: BP 127/57
[2018-12-16] MEDS: METOCLOPRAMIDE HCL 10MG/2ML VIAL IV SCH ×4 (05:58→17:04)
[2018-12-16] MEDS: INSULIN LISPRO 100 UNITS/ML SUBCUT SCH ×2 (06:00)
[2018-12-16] MEDS: BLOOD SUGAR DIAGNOSTIC STRIP TEST SCH ×2 (06:27)
[2018-12-16] MEDS: HYDRALAZINE HCL 50MG TABLET PO SCH ×3 (06:29→21:31)
[2018-12-16 07:22] LABS: BASOPHILS % 0.7 % (0.0-2.0); EOSINOPHILS % 3.1 % (0.0-5.0); HEMATOCRIT. 28.4 % (42.0-52.0); HEMOGLOBIN. 9.3 g/dL (14.0-18.0); LYMPHOCYTES % 9.6 % (20.0-50.0); MEAN CORPUSCULAR VOLUME 88.6 fL (80.0-94.0); MEAN PLATELET VOLUME 10.5 fl (7.4-10.4); MONOCYTES % 5.2 % (2.0-8.0); NEUTROPHILS % 81.4 % (40.0-76.0); PLATELET 98 x1000/uL (130-400); RED CELL DISTRIBUTION WIDTH 19.7 % (11.6-14.6)
[2018-12-16 08:00] VITALS: BP 125/65
[2018-12-16] MEDS: AMLODIPINE 5MG TABLET PO SCH ×2 (09:48→21:00)
[2018-12-16] MEDS: DUTASTERIDE 0.5MG CAPSULE PO SCH (09:48)
[2018-12-16] MEDS: CARVEDILOL 6.25 MG TABLET PO SCH ×2 (09:49→21:00)
[2018-12-16] MEDS: FISH OIL/OMEGA-3 FATTY ACIDS 1000MG CAPSULE PO SCH (09:49)
[2018-12-16] MEDS: ASPIRIN 81MG EC TABLET PO SCH (09:49)
[2018-12-16] MEDS: PANTOPRAZOLE SODIUM 40 MG/VIAL IV SCH (09:55)
[2018-12-16] MEDS: ZINC SULFATE 220 MG ( 50 ) CAPSULE PO SCH (09:55)
[2018-12-16] MEDS: TAMSULOSIN HCL 0.4MG SR CAPSULE PO SCH (09:55)
[2018-12-16 12:00] VITALS: BP 130/60
[2018-12-16 16:00] VITALS: BP 124/86
[2018-12-16 20:00] VITALS: BP 140/61
[2018-12-16] MEDS: EPOETIN ALFA 10000UNITS/ML VIAL SUBCUT SCH (21:34)
[2018-12-17] VITALS: BP 132/57
[2018-12-17] MEDS: IPRATROPIUM/ALBUTEROL 0.5-3(2.5)MG/3ML NEB HHN SCH ×6 (00:46→20:05)
[2018-12-17 04:00] VITALS: BP 126/59
[2018-12-17] MEDS: METOCLOPRAMIDE HCL 10MG/2ML VIAL IV SCH ×2 (06:20→17:34)
[2018-12-17] MEDS: HYDRALAZINE HCL 50MG TABLET PO SCH ×3 (06:21→22:45)
[2018-12-17 08:00] VITALS: BP 117/59
[2018-12-17] MEDS: FISH OIL/OMEGA-3 FATTY ACIDS 1000MG CAPSULE PO SCH (09:00)
[2018-12-17] MEDS: AMLODIPINE 5MG TABLET PO SCH ×2 (10:44→21:00)
[2018-12-17] MEDS: TAMSULOSIN HCL 0.4MG SR CAPSULE PO SCH (10:45)
[2018-12-17] MEDS: ZINC SULFATE 220 MG ( 50 ) CAPSULE PO SCH (10:45)
[2018-12-17] MEDS: ASPIRIN 81MG EC TABLET PO SCH (10:46)
[2018-12-17] MEDS: CARVEDILOL 6.25 MG TABLET PO SCH ×2 (10:46→21:00)
[2018-12-17] MEDS: PANTOPRAZOLE SODIUM 40 MG/VIAL IV SCH (10:47)
[2018-12-17] MEDS: DUTASTERIDE 0.5MG CAPSULE PO SCH (10:48)
[2018-12-17 12:00] VITALS: BP 117/57
[2018-12-17 16:00] VITALS: BP 125/61
[2018-12-17 20:00] VITALS: BP 112/46
[2018-12-18] VITALS (7 sets, daily range): BP systolic 105–135; BP diastolic 49–80
[2018-12-18] MEDS: IPRATROPIUM/ALBUTEROL 0.5-3(2.5)MG/3ML NEB HHN SCH ×7 (00:02→23:09)
[2018-12-18] MEDS: METOCLOPRAMIDE HCL 10MG/2ML VIAL IV SCH ×4 (02:23→18:20)
[2018-12-18 06:46] LABS: HEMATOCRIT. 31.3 % (42.0-52.0); MEAN CORPUSCULAR HEMOGLOBIN 28.5 pg (28.0-32.0); MEAN CORPUSCULAR VOLUME 89.2 fL (80.0-94.0); MEAN PLATELET VOLUME 10.9 fl (7.4-10.4); PLATELET 82 x1000/uL (130-400); RED BLOOD CELL COUNT 3.51 mill/uL (4.7-6.1)
[2018-12-18] MEDS: HYDRALAZINE HCL 50MG TABLET PO SCH ×3 (06:57→22:00)
[2018-12-18 07:13] LABS: PHOSPHORUS 4.5 mg/dL (2.5-4.9)
[2018-12-18] MEDS: DUTASTERIDE 0.5MG CAPSULE PO SCH (09:28)
[2018-12-18] MEDS: PANTOPRAZOLE SODIUM 40 MG/VIAL IV SCH (09:28)
[2018-12-18] MEDS: FISH OIL/OMEGA-3 FATTY ACIDS 1000MG CAPSULE PO SCH (09:29)
[2018-12-18] MEDS: ZINC SULFATE 220 MG ( 50 ) CAPSULE PO SCH (09:30)
[2018-12-18] MEDS: ASPIRIN 81MG EC TABLET PO SCH (09:30)
[2018-12-18] MEDS: CARVEDILOL 6.25 MG TABLET PO SCH ×2 (09:30→21:00)
[2018-12-18] MEDS: TAMSULOSIN HCL 0.4MG SR CAPSULE PO SCH (09:31)
[2018-12-18] MEDS: AMLODIPINE 5MG TABLET PO SCH ×2 (09:31→21:44)
[2018-12-18 13:12] LABS: PLATELET ESTIMATE DECREASED
[2018-12-18] MEDS ORDERED: LEVOFLOXACIN 500MG PREMIX 100 ML IV NR (14:00)
[2018-12-19] VITALS (7 sets, daily range): BP systolic 116–157; BP diastolic 50–72
[2018-12-19] MEDS: METOCLOPRAMIDE HCL 10MG/2ML VIAL IV SCH ×2 (00:49→05:58)
[2018-12-19] MEDS: IPRATROPIUM/ALBUTEROL 0.5-3(2.5)MG/3ML NEB HHN SCH ×5 (02:19→21:22)
[2018-12-19] MEDS: HYDRALAZINE HCL 50MG TABLET PO SCH ×3 (05:58→22:03)
[2018-12-19] MEDS: DUTASTERIDE 0.5MG CAPSULE PO SCH (09:00)
[2018-12-19] MEDS: ZINC SULFATE 220 MG ( 50 ) CAPSULE PO SCH (09:05)
[2018-12-19] MEDS: FISH OIL/OMEGA-3 FATTY ACIDS 1000MG CAPSULE PO SCH (09:05)
[2018-12-19] MEDS: AMLODIPINE 5MG TABLET PO SCH ×2 (09:07→22:03)
[2018-12-19] MEDS: ASPIRIN 81MG EC TABLET PO SCH (09:07)
[2018-12-19] MEDS: OMEPRAZOLE 20MG CAPSULE EXTENDED RELEASE PO SCH (09:30)
[2018-12-19] MEDS: TAMSULOSIN HCL 0.4MG SR CAPSULE PO SCH (10:03)
[2018-12-19] MEDS ORDERED: METOCLOPRAMIDE HCL 5MG TABLET PO SCH (11:45)
[2018-12-19] MEDS: METOCLOPRAMIDE HCL 5MG TABLET PO SCH ×2 (18:41→22:03)
[2018-12-19] MEDS: EPOETIN ALFA 10000UNITS/ML VIAL SUBCUT SCH (22:14)
[2018-12-20] VITALS: BP 128/60
[2018-12-20] MEDS: IPRATROPIUM/ALBUTEROL 0.5-3(2.5)MG/3ML NEB HHN SCH ×6 (00:03→20:38)
[2018-12-20 04:00] VITALS: BP 117/60
[2018-12-20] MEDS: OMEPRAZOLE 20MG CAPSULE EXTENDED RELEASE PO SCH (05:52)
[2018-12-20] MEDS: HYDRALAZINE HCL 50MG TABLET PO SCH ×3 (05:53→21:19)
[2018-12-20] MEDS: METOCLOPRAMIDE HCL 5MG TABLET PO SCH ×2 (05:55→12:07)
[2018-12-20 08:00] VITALS: BP 128/59
[2018-12-20] MEDS: DUTASTERIDE 0.5MG CAPSULE PO SCH (08:28)
[2018-12-20] MEDS: FISH OIL/OMEGA-3 FATTY ACIDS 1000MG CAPSULE PO SCH (08:28)
[2018-12-20] MEDS: TAMSULOSIN HCL 0.4MG SR CAPSULE PO SCH (08:29)
[2018-12-20] MEDS: ASPIRIN 81MG EC TABLET PO SCH (08:29)
[2018-12-20] MEDS: ZINC SULFATE 220 MG ( 50 ) CAPSULE PO SCH (08:29)
[2018-12-20] MEDS: AMLODIPINE 5MG TABLET PO SCH ×2 (08:30→21:20)
[2018-12-20 09:42] LABS: BASOPHILS % 0.4 % (0.0-2.0); HEMATOCRIT. 28.7 % (42.0-52.0); HEMOGLOBIN. 9.3 g/dL (14.0-18.0); LYMPHOCYTES % 8.1 % (20.0-50.0); MEAN CORPUSCULAR VOLUME 89.8 fL (80.0-94.0); MEAN PLATELET VOLUME 11.6 fl (7.4-10.4); MONOCYTES % 2.5 % (2.0-8.0); PLATELET 69 x1000/uL (130-400); RED CELL DISTRIBUTION WIDTH 20.1 % (11.6-14.6)
[2018-12-20 10:24] LABS: PHOSPHORUS 3.9 mg/dL (2.5-4.9)
[2018-12-20 12:00] VITALS: BP 143/61
[2018-12-20] MEDS ORDERED: DEXT 5%/0.45% NACL 1000ML 1,000 ML IV SCH (13:00)
[2018-12-20] MEDS ORDERED: LEVOFLOXACIN 250MG PREMIX 50 ML IV SCH (14:00)
[2018-12-20] MEDS ORDERED: SODIUM CHLORIDE 3% FOR INH 15ML VIAL NEB INH SCH (14:00)
[2018-12-20 16:00] VITALS: BP 123/55
[2018-12-20] MEDS ORDERED: IPRATROPIUM/ALBUTEROL 0.5-3(2.5)MG/3ML NEB HHN SCH (16:00)
[2018-12-20] MEDS: ACETYLCYSTEINE 100MG/ML 10% VIAL 4ML INH SCH (17:00)
[2018-12-20 20:00] VITALS: BP 113/51
[2018-12-20 20:31] LABS: CLARITY URINE TURBID (CLEAR); COLOR URINE YELLOW (YELLOW); KETONES URINE NEGATIVE (NEGATIVE); LEUKOCYTE ESTERASE URINE 3+ (NEGATIVE); NITRITE URINE NEGATIVE (NEGATIVE); OCCULT BLOOD URINE TRACE (NEGATIVE); PROTEIN URINE 3+ (NEGATIVE); SPECIFIC GRAVITY URINE 1.015 (1.005-1.030); UROBILINOGEN URINE 0.2 E.U./dL (0.2-1.0)
[2018-12-20] MEDS: SODIUM CHLORIDE 3% FOR INH 4ML UD NEB INH SCH (20:39)
[2018-12-21] VITALS (7 sets, daily range): BP systolic 122–130; BP diastolic 53–82
[2018-12-21] MEDS: IPRATROPIUM/ALBUTEROL 0.5-3(2.5)MG/3ML NEB HHN SCH ×5 (00:01→15:47)
[2018-12-21] MEDS: ACETYLCYSTEINE 100MG/ML 10% VIAL 4ML INH SCH ×3 (00:01→15:47)
[2018-12-21] MEDS: SODIUM CHLORIDE 3% FOR INH 4ML UD NEB INH SCH ×2 (00:01→04:19)
[2018-12-21] MEDS: HYDRALAZINE HCL 50MG TABLET PO SCH (06:10)
[2018-12-21] MEDS: ZINC SULFATE 220 MG ( 50 ) CAPSULE PO SCH (09:50)
[2018-12-21] MEDS: FISH OIL/OMEGA-3 FATTY ACIDS 1000MG CAPSULE PO SCH (09:50)
[2018-12-21] MEDS: TAMSULOSIN HCL 0.4MG SR CAPSULE PO SCH (09:50)
[2018-12-21] MEDS: DUTASTERIDE 0.5MG CAPSULE PO SCH (09:50)
[2018-12-21] MEDS: ASPIRIN 81MG EC TABLET PO SCH (09:50)
[2018-12-21] MEDS: AMLODIPINE 5MG TABLET PO SCH (09:51)
[2018-12-21] MEDS ORDERED: FLUCONAZOLE 100MG TABLET PO NR (13:15)
[2018-12-21] MEDS: FUROSEMIDE 100MG/10ML VIAL IVP SCH ×2 (14:26→17:00)
[2018-12-21] MEDS ORDERED: HYDRALAZINE HCL 50MG TABLET PO SCH (17:00)
[2018-12-21] MEDS: METOCLOPRAMIDE HCL 5MG TABLET PO SCH (17:47)
== END 2018-12-21 22:15 | disposition home health service (06) | DRG 870 ==
LOC: ER 10:31 → CVICU 11:41 → EDBEDREQ 11:45 → EDBEDREQSVC 11:45 → ENRESERV 14:41 → 5WST 12-14 11:02
PROVIDERS: ADMIT Internal Medicine; ATTEND Internal Medicine
PROC: 5A1955Z Respiratory Ventilation, Greater than 96 Consecutive Hours (ICD-10-PCS; principal; 2018-12-08)
PROC: 0BH17EZ Insertion of Endotracheal Airway into Trachea, Via Natural or Artificial Opening (ICD-10-PCS; 2018-12-08)
PROC: 02HV33Z Insertion of Infusion Device into Superior Vena Cava, Percutaneous Approach (ICD-10-PCS; 2018-12-08)
PROC: B548ZZA Ultrasonography of Superior Vena Cava, Guidance (ICD-10-PCS; 2018-12-08)
PROC: 30233N1 Transfusion of Nonautologous Red Blood Cells into Peripheral Vein, Percutaneous Approach (ICD-10-PCS; 2018-12-10)
DX: A41.1 Sepsis due to other specified staphylococcus (principal); J96.01 Acute respiratory failure with hypoxia; J69.0 Pneumonitis due to inhalation of food and vomit; N18.6 End stage renal disease; G93.41 Metabolic encephalopathy; E43 Unspecified severe protein-calorie malnutrition; D68.9 Coagulation defect, unspecified; E87.0 Hyperosmolality and hypernatremia; N17.9 Acute kidney failure, unspecified; I13.2 Hypertensive heart and chronic kidney disease with heart failure and with stage 5 chronic kidney disease, or end stage renal disease; I50.22 Chronic systolic (congestive) heart failure; I42.9 Cardiomyopathy, unspecified; J98.19 Other pulmonary collapse; T17.890A Other foreign object in other parts of respiratory tract causing asphyxiation, initial encounter; E87.2 Acidosis; J84.9 Interstitial pulmonary disease, unspecified; N39.0 Urinary tract infection, site not specified; D64.9 Anemia, unspecified; D69.6 Thrombocytopenia, unspecified; R65.20 Severe sepsis without septic shock; E11.319 Type 2 diabetes mellitus with unspecified diabetic retinopathy without macular edema; E87.6 Hypokalemia; L89.150 Pressure ulcer of sacral region, unstageable; E11.51 Type 2 diabetes mellitus with diabetic peripheral angiopathy without gangrene; L89.890 Pressure ulcer of other site, unstageable; R00.1 Bradycardia, unspecified; E11.649 Type 2 diabetes mellitus with hypoglycemia without coma; E11.22 Type 2 diabetes mellitus with diabetic chronic kidney disease; G40.909 Epilepsy, unspecified, not intractable, without status epilepticus; I25.10 Atherosclerotic heart disease of native coronary artery without angina pectoris; M19.90 Unspecified osteoarthritis, unspecified site; Z53.29 Procedure and treatment not carried out because of patient's decision for other reasons; I27.20 Pulmonary hypertension, unspecified; E11.40 Type 2 diabetes mellitus with diabetic neuropathy, unspecified; I48.91 Unspecified atrial fibrillation; H54.3 Unqualified visual loss, both eyes; J44.9 Chronic obstructive pulmonary disease, unspecified; N40.0 Benign prostatic hyperplasia without lower urinary tract symptoms; X58.XXXA Exposure to other specified factors, initial encounter; Y93.89 Activity, other specified; Y92.89 Other specified places as the place of occurrence of the external cause; Y99.8 Other external cause status; Z74.01 Bed confinement status; Z78.1 Physical restraint status; Z95.5 Presence of coronary angioplasty implant and graft; Z87.440 Personal history of urinary (tract) infections; Z82.49 Family history of ischemic heart disease and other diseases of the circulatory system; Z83.3 Family history of diabetes mellitus; Z86.73 Personal history of transient ischemic attack (TIA), and cerebral infarction without residual deficits; Z68.28 Body mass index [BMI] 28.0-28.9, adult; Z88.5 Allergy status to narcotic agent; Z91.048 Other nonmedicinal substance allergy status; Z79.899 Other long term (current) drug therapy
CPT/HCPCS: 36415; 36569; 36600; 71045; 76937; 80048; 80061; 80202; 82375; 82805; 82962; 83605; 83735; 84100; 84134; 84145; 84439; 84443; 84478; 84484; 85014; 85018; 86850; 86900; 86920; 87070; 87077; 87106; 87186; 92610; 93005; 93306; 93970; 94002; 94003; 94640; 96365; 96366; 99291; A6261; C1725; C1769; C9113; J0330; J0360; J0885; J1200; J1815; J1940; J1956; J2185; J2250; J2405; J2543; J2704; J2765; J3370; J3480; J3490; J7030; J7040; J7050; J7060; J7070; J7608; J7620; J8597; P9016